=== PATIENT | male | born 1950 | race African-American/Black ===

== ENCOUNTER 2021-01-23 18:01 | Inpatient (IN) | payer MEDICARE, SELFPAY ==
--- NOTE | ~2021-01-23 | CT_ITS ---
EXAMINATION: CT brain wo con EXAM DATE: 01/27/2021 09:53 INDICATION: re eval possible chronic subdural hematomas EXAMINATION: CT brain wo con EXAM DATE: 01/27/2021 09:53 INDICATION: Reevaluate chronic subdural hematomas. TECHNIQUE: Spiral CT of the head was performed without contrast. Axial, coronal and sagittal images were reviewed. The dose-length product (DLP) for this examination was 605.33 mGy-cm. The exposure w as tailored according to patient size, and iterative reconstruction (ASIR) was used as additional dos e reduction technique. Comparison is made to prior examination from 01/24/2021. FINDINGS: Mildly prominent bifrontal extra-axial spaces, probable thin chronic subdural hematomas. Th ere is no acute intraparenchymal hemorrhage. No evidence of intraparenchymal brain mass lesion. No evidence of acute infarction. Please note that initial head CT has limited sensitivity for small or acute infarctions. There is a right-sided ventricular shunt overlying anterior aspect of the right v entricle. Probable aneurysm clip at the anterior communicating artery. There is mild periventricular and subcortical hypodensity, nonspecific but probably related to small vessel ischemic disease. Th ere is mild to moderate prominence of the sulci and ventricles related to cerebral atrophy. There i s intracranial carotid arteriosclerosis. There is no mass effect or midline shift. The orbits are u nremarkable. Soft tissue is unremarkable. The visualized sinuses and mastoid air cells are well aer ated. There is no significant interval change. IMPRESSION: 1. No acute findings or interval change. 2. Probably small chronic subdural hematomas. 3. Aneurysm clip, ventricular shunt. 4. Age-related findings. Reviewed, dictated and finalized at location A. IER PARKING LOT
--- NOTE | ~2021-01-23 | CT_ITS ---
EXAMINATION: CT brain wo con EXAM DATE: 01/24/2021 16:58 INDICATION: COVID 19. Altered mental status. TECHNIQUE: Spiral CT of the head was performed without contrast. Axial, coronal and sagittal images were reviewed. The dose-length product (DLP) for this examination was 681.00 mGy-cm. The exposure w as tailored according to patient size, and iterative reconstruction (ASIR) was used as additional dos e reduction technique. There is no prior study for comparison. FINDINGS: Mildly prominent bifrontal extra-axial spaces, possible chronic subdural hematomas. Mildly dense arteries and sinuses, likely from yesterday's contrast enhanced CT. There is no acute intrapare nchymal hemorrhage. No evidence of intraparenchymal brain mass lesion. No evidence of acute infarct ion. Please note that initial head CT has limited sensitivity for small or acute infarctions. There is a right-sided ventricular shunt overlying anterior aspect of the right ventricle. Probable aneury sm clip at the anterior communicating artery. There is mild periventricular and subcortical hypodens ity, nonspecific but probably related to small vessel ischemic disease. There is mild to moderate p rominence of the sulci and ventricles related to cerebral atrophy. There is intracranial carotid ar teriosclerosis. There is no mass effect or midline shift. The orbits are unremarkable. Soft tissue is unremarkable. The visualized sinuses and mastoid air cells are well aerated. IMPRESSION: 1. No acute intracranial findings. 2. Prominent right frontal extra-axial spaces, possible chronic subdural hematomas. 3. Aneurysm clip, ventricular shunt. No hydrocephalus. 4. Age-related findings. Reviewed, dictated and finalized at location A. SPLICER IMPRESSION: 1. No acute intracranial findings. 2. Prominent right frontal extra-axial spaces, possible chronic subdural hemat omas. 3. Aneurysm clip, ventricular shunt. No hydrocephalus. 4. Age-related findings.
--- NOTE | ~2021-01-23 | XR_ITS ---
EXAMINATION: XR chest 1V portable INDICATION: Weakness and confusion, COVID 19 TECHNIQUE: Portable AP chest at 1839 hours COMPARISON: None available FINDINGS: There are patchy bilateral airspace opacities, left greater than right. There is focal cons olidation versus pleural effusion at the left costophrenic angle. No pneumothorax is identified. The cardiomediastinal silhouette is normal for technique. Ventriculoperitoneal shunt catheter tubing proj ects over the right hemithorax. There is dextrocurvature of the lower thoracic spine. IMPRESSION: 1. Patchy bilateral airspace opacities, likely pneumonia. 2. More focal consolidation at the left costophrenic angle may reflect pleural effusion and/or and/or pneumonia. Reviewed, dictated and finalized at location A. NG CHANGER
--- NOTE | ~2021-01-23 | CT_ITS ---
EXAMINATION: CTA chest PE protocol DATE: 01/23/2021 20:16 INDICATION: Weakness and increasing confusion, shortness of breath TECHNIQUE: Computed tomography angiography (CTA) of the chest was performed with 100 mL Omnipaque-350 intravenous contrast timed to evaluate the pulmonary arteries. Coronal maximum intensity projection 3D-reconstructions were created by the technologist. The dose-length product (DLP) was 861.00 mGy-cm. Automated exposure control and iterative reconstruction technique were employed. COMPARISON: None. FINDINGS: The pulmonary arteries are well-opacified. No pulmonary embolism is identified. There are w idespread groundglass opacities with a peripheral and mid and lower lung zone predominance. No pleura l effusion or pneumothorax is identified. The heart size is normal. Ventriculoperitoneal shunt cathet er tubing courses over the right anterior chest wall. There are no pathologically enlarged thoracic l ymph nodes. Calcified pulmonary nodules and calcified right hilar and mediastinal lymph nodes are con sistent with old granulomatous disease. Cysts of the kidneys measure up to 6.5 cm on the right. There is mild thoracic spondylosis. IMPRESSION: 1. No pulmonary embolism. 2. Widespread groundglass opacities, consistent with COVID 19 pneumonia. Reviewed, dictated and finalized at location A. E ENGINEER
--- NOTE | ~2021-01-23 | XR_ITS ---
EXAMINATION: XR chest 1V portable EXAM DATE: 01/26/2021 05:35 INDICATION: COVID pneumonia. TECHNIQUE: Portable AP frontal chest x-ray was obtained. Comparison is made to prior examination from 01/23/2021. FINDINGS: Moderate quantity of diffuse ill-defined airspace disease, appearance is consistent with CO VID pneumonia. No pneumothorax or pleural effusion. The cardiac silhouette is enlarged. There is no p neumothorax suspected. Right midlung zone granuloma. Thoracic portion of ventriculoperitoneal shunt a ppears intact. Probably no significant interval change accounting for differences in technique. IMPRESSION: 1. Moderate quantity of ill-defined airspace disease involving all lobes. Reviewed, dictated and finalized at location A. CLEANER
[2021-01-23 18:10] VITALS: BP 125/88; PULSE 105; RESP 20; TEMP 36.7; O2SAT 95
--- NOTE | 2021-01-23 18:14 | ECG_ITS ---
Measurements Intervals [place] Rate: 95 P: 47 TX: 141 QRS: -22 QRSD: 86 T: -8 QT: 361 QTc: 455 Interpretive Statements SINUS RHYTHM BORDERLINE R WAVE PROGRESSION, ANTERIOR LEADS BORDERLINE T WAVE ABNORMALITY- ANT/INF LEADS BORDERLINE ECG Electronically Signed On 01-23-2021 19:58:31 ORDER CHECKER by Horacio Martin D.O.
--- NOTE | 2021-01-23 18:32 | ED.GENADULT ---
HPI - General Adult General Chief complaint: Weakness Stated complaint: covid, weakness Time Seen by Provider: 01/23/21 18:20 Source: patient and EMS Mode of arrival: EMS Limitations: no limitations History of Present Illness HPI narrative: Patient is a 70-year-old male who presents from assisted living for evaluation of shortness of breath with URI symptoms having been positive for pneumonia and Covid patient Covid 2 weeks ago has still been having dyspnea and fighting pneumonia this week patient on arrival is in no distress but is chronically ill-appearing patient presents on oxygen which EMS applied after being found to be hypoxic and the higher 80s. Patient denies any pain upon arrival. Patient has generalized fatigue Related Data Allergies Allergy/AdvReac Type Severity Reaction Status Date / Time No Known Allergies Allergy Unverified 04/22/19 13:32 Review of Systems Review of Systems: All systems reviewed & are unremarkable except as noted in HPI and below PMFSH Past Medical History Medical History (Updated 01/23/21 @ 21:05 by Parish Holly PA-C) CVA (cerebral vascular accident) Hyperlipidemia Hypertension Seizure disorder Social History Social History (Updated 01/23/21 @ 18:36 by Parish Holly PA-C) Smoking status: Never smoker Exam Narrative: Exam Narrative: GENERAL: Chronically ill-appearing, obese, and in no acute distress. HEAD: Normocephalic, atraumatic. EYES: PERRLA and EOMI. ENT: Nares clear, no rhinorrhea or epistaxis. Mucous membranes moist. CHEST: Diminished on auscultation. No respiratory distress. Coarse breath sounds in the lower lung mcmahan HEART: Regular rate and rhythm. No murmur heard. Normal peripheral pulses. ABDOMEN: Soft, nontender, nondistended EXTREMITIES: Normal range of motion. No edema. SKIN: Warm, dry, no rash. NEURO: No focal deficits. Alert and oriented. Cranial nerves II through XII grossly intact PSYCH: Normal mood and affect. Course Course Emergency Course: Patient evaluated in the emergency department likely experiencing hypoxemia secondary to his Covid patient also dehydrated patient will be admitted for continued evaluation patient resting comfortably in the room at this time no distress had improvement with oxygen requiring 2 L Consultations Consultation #1: spoke with hospitalist dr johnson who has accepted the patient Date: 01/23/21 Time: 21:20 Vital Signs Vital signs: Vital Signs Temperature 98.0 F 01/23/21 18:10 Pulse Rate 105 H 01/23/21 18:10 Respiratory Rate 20 01/23/21 18:10 Blood Pressure 125/88 01/23/21 18:10 Pulse Oximetry 95 01/23/21 18:10 Temperature 98.0 F 01/23/21 18:10 Pulse Rate 87 01/23/21 21:06 Respiratory Rate 27 H 01/23/21 21:06 Blood Pressure 124/108 H 01/23/21 21:06 Pulse Oximetry 94 01/23/21 21:06 Medical Decision Making MDM Narrative Medical decision making narrative: Patient with hypoxemia secondary to Covid pneumonia was given fluids and steroids in the emergency department be brought into the hospital for his oxygen requirements patient aware of this and agreeing to come into the hospital will be admitted to the hospitalist service Vital Signs Vital Signs: Vital Signs Temperature 98.0 F 01/23/21 18:10 Pulse Rate 105 H 01/23/21 18:10 Respiratory Rate 20 01/23/21 18:10 Blood Pressure 125/88 01/23/21 18:10 Pulse Oximetry 95 01/23/21 18:10 Temperature 98.0 F 01/23/21 18:10 Pulse Rate 87 01/23/21 21:06 Respiratory Rate 27 H 01/23/21 21:06 Blood Pressure 124/108 H 01/23/21 21:06 Pulse Oximetry 94 01/23/21 21:06 Lab Data Result diagrams: 01/23/21 20:07 01/23/21 19:17 Labs: Lab Results 01/23/21 01/23/21 01/23/21 Range/Units 18:46 18:58 19:17 WBC (4.5-10.0) K/mm3 RBC (4.6-6.20) M/mm3 Hgb (14.0-18.0) g/dL Hct (42.0-52.0) % MCV (80-100) fl MCH (26-34) pg MCHC (32-36) g/dl RDW
[2021-01-23 18:50] LABS: Alveolar/Arterial O2 Gradient 104.1 mmHg; Base Excess ABG 3.7 mEq/l (+/-2.0); Carboxyhemoglobin 1.5 % THb (0-2.0); Fractional Inspired Oxygen 30 %; HCO3 ABG 26.7 mEq/l (22.0-26.0); Methemoglobin ABG 0.2 %THb (0-1.5); Oxygen Content ABG 20.2 %vol (16.0-22.0); Oxyhemoglobin 91.6 % THb (90.0-100.0); PCO2 ABG 35.7 mmHg (35.0-45.0); PO2 ABG 67.9 mmHg (80.0-100.0); PO2 FiO2 Ratio Arterial Blood 2.26 %; Reduced Hemoglobin 6.7 %THb (0-5.0); Total Hemoglobin 15.7 g/dL (12.0-18.0); pH ABG 7.492 (7.350-7.450)
[2021-01-23 18:51] LABS: Device NASAL CANNULA; Liters per Minute 2.5 LPM; Modified Allen's Test Pass; Site Drawn LEFT RADIAL
[2021-01-23] MEDS: SODIUM CHLORIDE 0.9% IV 500 ML 999 ML IV CONT (18:55)
--- NOTE | 2021-01-23 19:06 | PC.NURSE ---
Per Jahaira Brantley of [facility] - PT was tested and diagnosed Covid + on 01/14/2021
[2021-01-23 19:21] LABS: Add Urine Microscopic? YES; Appearance Urine Clear (Clear); Bilirubin Urine Negative (Negative); Blood Urine Negative (Negative); Color Urine Yellow (Yellow); Glucose Urine UA Negative (Negative); Ketones Urine Trace mg/dL (Negative); Leukocyte Esterase Ur Negative LEU/UL (Negative); Mucus Urine Rare /lpf; Nitrate Urine Negative (Negative); Protein Urine 1+ mg/dL (Negative); RBC Urine 0-2 /hpf (0-2); Specific Grav Ur 1.024 (1.001-1.035); Squamous Epithelial Cell Urine Rare /hpf (Few); Urobilinogen Urine Negative mg/dL (<2.0); WBC Urine 0-3 /hpf
[2021-01-23 19:38] LABS: Alanine Aminotransferase 31 U/L (4-50); Albumin Level 3.5 g/dL (3.5-5.1); Alkaline Phosphatase 66 U/L (38-126); Anion Gap 5 mmol/L (8-16); Aspartate Amino Transferase 30 U/L (17-59); Bilirubin,Total 0.7 mg/dL (0.2-1.3); Blood Urea Nitrogen 29 mg/dL (9-20); Calcium 8.7 mg/dL (8.4-10.2); Carbon Dioxide 30 mmol/L (22-30); Chloride 109 mmol/L (98-107); Estimated CRCL calculation 70 ml/min; Estimated Glomerular Filt Rate > 60; Glucose 110 mg/dL (75-110); Sodium 144 mmol/L (137-145)
[2021-01-23 19:40] LABS: INR 1.1; Prothrombin Time 14.8 Seconds (11.1-14.7)
[2021-01-23 19:41] LABS: Partial Thromboplastin Time 29.7 SECONDS (22.3-36.8)
--- NOTE | 2021-01-23 20:11 | PC.NURSE ---
Patient to CT at this time+
[2021-01-23 20:22] LABS: Basophils Percent Auto 0.1 % (0.2-1.2); Eosinophils Absolute Auto 0.1 K/mm3 (0-0.3); Eosinophils Percent Auto 1.3 % (0-4.4); Hematocrit 47.2 % (42.0-52.0); Hemoglobin 15.4 g/dL (14.0-18.0); Immature Granulocyte Absolute 0.07 K/mm3 (0.00-0.031); Immature Granulocyte Percent A 0.7 % (0-0.5); Lymphocytes Absolute Auto 1.47 K/mm3 (0.9-3.2); Lymphocytes Percent Auto 13.8 % (18.3-44.2); Mean Corpuscular HGB Conc 32.6 g/dl (32-36); Mean Corpuscular Hemoglobin 30.8 pg (26-34); Mean Corpuscular Volume 94.4 fl (80-100); Mean Platelet Volume 9.7 fl (7.4-10.4); Monocytes Absolute Auto 0.9 K/mm3 (0.1-0.6); Monocytes Percent Auto 8.8 % (2.6-8.5); Neutrophils Absolute Auto 8.1 K/mm3 (1.3-6.7); Neutrophils Percent Auto 75.3 % (45.5-73.1); Platelet Count Result 237 k/mm3 (150-375); Red Cell Distribution Width 14.6 % (11.5-14.5); White Blood Count 10.7 K/mm3 (4.5-10.0)
[2021-01-23 20:33] LABS: Lactic Acid Reflex 0.9 mmol/L (0.7-2.1)
[2021-01-23 21:06] VITALS: BP 124/108; PULSE 87; RESP 27; O2SAT 94
[2021-01-23] MEDS: DEXAMETHASONE SOD PHOS INJ 4 MG/ML VIAL 6 MG IV PUSH (21:06)
--- NOTE | 2021-01-23 22:22 | PM.IMHP ---
H&P: HPI History of Present Illness Date/Time: 01/23/21 22:22 Chief Complaint: Shortness of breath Narrative: Ignacia Connelly is a 70 year old male who resides at assisted living. For upper respiratory infection symptoms. The patient tested positive for COVID-19 2 weeks ago. He is still having dyspnea and fatigue. The patient was falling asleep while I was asking him questions. He is very hard of hearing and I was having difficulty interviewing the patient. The patient has had a history of tracheostomy when he had an aneurysm rupture in the past. The patient is chronically ill-appearing. EMS put the patient on 2 L per nasal cannula. The patient was found to be hypoxic and saturating in the 80s. Chest x-ray was read as patchy bilateral airspace opacities likely pneumonia. More focal consolidation at the left costophrenic angle may reflect pleural effusion and/or pneumonia. Review of Systems Review of Systems: All systems reviewed & are unremarkable except as noted in HPI and below Constitutional: Constitutional: Reports as per HPI and Reports no additional constitutional complaints Eyes: Eyes: Reports as per HPI and Reports no additional eye complaints ENT: Reports system reviewed and no additional complaints, except as documented and Reports Normal hearing present Cardiovascular: Cardiovascular: Reports no additional cardiovascular complaints Respiratory: Respiratory: Reports no additional respiratory complaints and Reports no additional respiratory complaints Gastrointestinal: Gastrointestinal: Reports as per HPI and Reports no additional gastrointestinal complaints Musculoskeletal: Musculoskeletal: Reports no additional musculoskeletal complaints Integumentary/Breasts: Skin/Breast: Reports system reviewed and no additional complaints, except as docu and Reports as per HPI Neurologic: Reports system reviewed and no additional complaints, except as documented, Reports as per HPI and Reports Normal hearing present Psychiatric: Psychiatric: Reports no additional psychiatric complaints and Reports as per HPI Endocrine: Endocrine: Reports no additional endocrine complaints Hematologic/Lymphatic: Hematologic/Lymphatic: Reports no additional hematologic/lymphatic complaints Allergic/Immunologic: Allergic/Immunologic: Reports no additional allergic/immunologic complaints [facility] Past Medical History Medical History (Updated 01/23/21 @ 22:47 by Alina Tello NP) CVA (cerebral vascular accident) Hyperlipidemia Hypertension Seizure disorder Surgical History Surgical History (Updated 01/23/21 @ 22:29 by Alina Tello NP) History of tracheostomy S/P aneurysm repair Family History Family History (Updated 01/23/21 @ 22:30 by Alina Tello NP) Unknown Unknown family medical history Social History Social History (Updated 01/23/21 @ 18:36 by Parish Holly PA-C) Smoking status: Never smoker Meds Home Medications and Allergies Allergies Allergy/AdvReac Type Severity Reaction Status Date / Time No Known Allergies Allergy Unverified 04/22/19 13:32 Vital Signs Vital Signs - 24 hr 01/23/21 18:10 01/23/21 21:06 Temperature 36.7 C Pulse Rate 105 H 87 Respiratory Rate 20 27 H Blood Pressure 125/88 124/108 H Pulse Oximetry 95 94 Exam Const: General: no acute distress, well developed and awake Nutritional Appearance: average body habitus and overweight Orientation/consciousness: oriented to person, oriented to place and lethargic Limitations: other limitations (Patient is very hard of hearing and is lethargic) HENMT: Head: normal to inspection, No palpable skull fracture present, normocephalic and atraumatic Ears: hearing grossly normal bilaterally and external ears normal Eyes: General: appearance normal, both eyes and all related structures Alignment and Position: alignment normal Periorbital: periorbital findings normal Eyelids: eyelids normal Conjunctivae: conjunctivae
[2021-01-23 22:30] VITALS: BP 137/87; PULSE 87; RESP 16; O2SAT 94
[2021-01-23 23:31] VITALS: BMI 32.8
--- NOTE | 2021-01-23 23:35 | ADMGEN ---
This patient, Ignacia Connelly, was admitted to [facility] Room 325-01. Patient/family oriented to hospital policies and general routines including ID bracelet, bed and alarms, visiting hours, pain management, procedures, bathroom and other care routines, personal items, smoking policy, room service/diet, and visiting hours. Information on how to activate the Rapid Response Team has been discussed. Patient/Family are encouraged to report perceived risks to care and to ask questions if they do not understand what they are told or what they should do.
[2021-01-23 23:37] VITALS: PULSE 87; RESP 16; O2SAT 94
[2021-01-24] VITALS (14 sets, daily range): BP systolic 114–126; BP diastolic 68–87; PULSE 66–107; RESP 16–22; TEMP 36.2–36.6; O2SAT 87–95; BMI 32.8
[2021-01-24] MEDS: LACTATED RINGERS 1,000 ML 50 ML IV CONT
[2021-01-24 06:57] LABS: Basophils Percent Auto 0.2 % (0.2-1.2); Hematocrit 46.5 % (42.0-52.0); Hemoglobin 14.9 g/dL (14.0-18.0); Immature Granulocyte Absolute 0.04 K/mm3 (0.00-0.031); Immature Granulocyte Percent A 0.7 % (0-0.5); Lymphocytes Absolute Auto 0.53 K/mm3 (0.9-3.2); Lymphocytes Percent Auto 8.7 % (18.3-44.2); Mean Corpuscular Hemoglobin 30.5 pg (26-34); Mean Corpuscular Volume 95.3 fl (80-100); Monocytes Absolute Auto 0.2 K/mm3 (0.1-0.6); Monocytes Percent Auto 3.1 % (2.6-8.5); Neutrophils Absolute Auto 5.3 K/mm3 (1.3-6.7); Neutrophils Percent Auto 87.3 % (45.5-73.1); Platelet Count Result 231 k/mm3 (150-375); Red Blood Count 4.88 M/mm3 (4.6-6.20); Red Cell Distribution Width 14.6 % (11.5-14.5); White Blood Count 6.1 K/mm3 (4.5-10.0)
[2021-01-24 07:12] LABS: Anion Gap 4 mmol/L (8-16); Blood Urea Nitrogen 29 mg/dL (9-20); Calcium 8.8 mg/dL (8.4-10.2); Carbon Dioxide 29 mmol/L (22-30); Chloride 111 mmol/L (98-107); Estimated CRCL calculation 67 ml/min; Estimated Glomerular Filt Rate > 60; Glucose 132 mg/dL (75-110); Potassium 4.4 mmol/L (3.4-5.0); Sodium 144 mmol/L (137-145)
[2021-01-24] MEDS: DEXAMETHASONE SOD PHOS INJ 4 MG/ML VIAL 6 MG IV PUSH (08:33)
[2021-01-24] MEDS: FAMOTIDINE 20 MG/2 ML VIAL IV PUSH ×2 (08:33→21:11)
[2021-01-24] MEDS: ENOXAPARIN 40 MG/0.4 ML SYRINGE SUB-Q (08:33)
--- NOTE | 2021-01-24 12:40 | PCNSR ---
On 01/24/21, the student,Elsy Galvan, provided care and completed [facility] documentation on this patient. I have reviewed the student's documentation and agree with the findings.
[2021-01-24] MEDS: DOCUSATE SODIUM 100 MG CAPSULE PO ×2 (13:33→21:15)
[2021-01-24] MEDS: carvediloL 25 MG TABLET PO ×2 (13:33→21:13)
[2021-01-24] MEDS: ESCITALOPRAM OXALATE 10 MG TABLET PO (13:33)
[2021-01-24] MEDS: FUROSEMIDE 20 MG TABLET PO (13:33)
[2021-01-24] MEDS: ASPIRIN 81 MG CHEWABLE TABLET PO (13:33)
[2021-01-24] MEDS: hydrALAZINE HCL 50 MG TABLET PO ×2 (13:33→21:13)
[2021-01-24] MEDS: TAMSULOSIN HCL 0.4 MG CAPSULE PO (13:33)
[2021-01-24] MEDS: LORazepam INJ (*CRX) 2 MG/ML VIAL 0.5 MG IV PUSH (13:33)
[2021-01-24] MEDS: levETIRAcetam 500 MG TABLET 1000 MG PO ×2 (13:33→21:12)
--- NOTE | 2021-01-24 14:31 | PM.IMPN ---
Progress Note: A&P Assessment and Plan (1) COVID-19: Code(s): U07.1 - COVID-19 Status: Acute Assessment and Plan: Patient continues to have oxygen requirements and respiratory symptoms and is now hospitalized for such -imaging shows likely COVID-19, no PE - Patient was tested positive for COVID 2 weeks ago -continue Decadron -he is out of the window for Remdesivir -Continue with nebulizer inhaler and incentive spirometer -wean oxygen as tolerated -will check influenza -hold off on antibiotics at this time as I do not suspect bacterial infection but will monitor closely (2) Pneumonia: Code(s): J18.9 - Pneumonia, unspecified organism Status: Acute Assessment and Plan: Likely due to COVID-19 -as above (3) Dehydration: Code(s): E86.0 - Dehydration Status: Acute Assessment and Plan: Resolved -will stop fluids -he will sustain on oral feedings (4) Hyperlipidemia: Code(s): E78.5 - Hyperlipidemia, unspecified Status: Chronic Assessment and Plan: Chronic (5) Hypertension: Code(s): I10 - Essential (primary) hypertension Status: Chronic Assessment and Plan: Last blood pressure 126/87 -continue carvedilol and hydralazine (6) Acute respiratory failure with hypoxia: Code(s): J96.01 - Acute respiratory failure with hypoxia Status: Acute Assessment and Plan: Due to COVID-19 -wean oxygen as tolerated (7) Acute metabolic encephalopathy: Code(s): G93.41 - Metabolic encephalopathy Status: Acute Assessment and Plan: Likely due to combination of COVID and worsened with steroids -although no neurological deficits on exam, will check CT of the brain since COVID-19 is a hypercoagulable state -hopefully this will improve over time Time Spent With Patient Time with patient: 25 - 35 minutes Subjective Date/time seen: 01/24/21 14:31 Interval history: Pt is a 70-year-old male here for COVID-19. Patient was seen today and seems anxious. He states he has to get out here but when asked why, he cannot tell me why. He says he is not any pain. He has slight shortness of breath. No cough. He says he has been eating and drinking okay. Pt denies nausea, vomiting, fevers, chills, constipation, diarrhea, chest pain, or abdominal pain. Review of Systems Review of Systems: All systems reviewed & are unremarkable except as noted in HPI and below Exam Narrative: Exam Narrative: General: Overweight patient resting comfortably in bed in no acute distress HEENT: normocephalic Neck: supple Neuro: Alert and oriented to himself, place but not situation or year. Follows commands. Cranial nerves 2-12 intact. Equal strength the upper lower extremities 5/5 CV:RRR, quite of breath due to body habitus Resp: Slightly decreased breath sounds with O2 applied. No conversational dyspnea Abd: Soft, non distended. No pain to palpation. Positive bowel sounds Extremities: No swelling, erythema, or pain to palpation. Objective Data Vital Signs Vital Signs: Vital Signs - 24 hr 01/23/21 18:10 01/23/21 21:06 01/23/21 22:30 Temperature 98.0 F Pulse Rate 105 H 87 87 Respiratory Rate 20 27 H 16 Blood Pressure 125/88 124/108 H 137/87 Pulse Oximetry 95 94 94 01/23/21 23:37 01/24/21 02:21 01/24/21 04:00 Temperature 97.5 F L Pulse Rate 87 93 Respiratory Rate 16 22 H Blood Pressure 117/76 Pulse Oximetry 94 93 93 01/24/21 08:00 01/24/21 08:09 01/24/21 12:00 Temperature 97.9 F 97.2 F L Pulse Rate 92 95 Respiratory Rate 16 16 Blood Pressure 126/87 126/87 Pulse Oximetry 95 93 94 01/24/21 13:33 01/24/21 13:43 01/24/21 13:45 Temperature Pulse Rate 94 Respiratory Rate Blood Pressure Pulse Oximetry 89 L 92 Intake/Output Intake/Output: Intake & Output 01/21/21 01/22/21 01/23/21 01/24/21 23:59 23:59 23:59 23:59 Intake Total 500 3
[2021-01-24 15:26] LABS: Influenza Control Positive
[2021-01-25] VITALS (8 sets, daily range): BP systolic 103–113; BP diastolic 65–72; PULSE 62–81; RESP 18–20; TEMP 36.2–36.6; O2SAT 90–95
[2021-01-25] MEDS: hydrALAZINE HCL 50 MG TABLET PO ×3 (05:18→20:53)
[2021-01-25 06:21] LABS: Basophils Percent Auto 0.2 % (0.2-1.2); Eosinophils Percent Auto 0.1 % (0-4.4); Hemoglobin 13.4 g/dL (14.0-18.0); Immature Granulocyte Absolute 0.09 K/mm3 (0.00-0.031); Immature Granulocyte Percent A 0.6 % (0-0.5); Lymphocytes Absolute Auto 1.31 K/mm3 (0.9-3.2); Lymphocytes Percent Auto 9.2 % (18.3-44.2); Mean Corpuscular HGB Conc 32.7 g/dl (32-36); Mean Corpuscular Hemoglobin 30.6 pg (26-34); Mean Corpuscular Volume 93.6 fl (80-100); Mean Platelet Volume 10.2 fl (7.4-10.4); Monocytes Absolute Auto 1.2 K/mm3 (0.1-0.6); Neutrophils Absolute Auto 11.7 K/mm3 (1.3-6.7); Neutrophils Percent Auto 81.9 % (45.5-73.1); Platelet Count Result 250 k/mm3 (150-375); Red Blood Count 4.38 M/mm3 (4.6-6.20); Red Cell Distribution Width 14.4 % (11.5-14.5); White Blood Count 14.3 K/mm3 (4.5-10.0)
[2021-01-25 06:51] LABS: Alanine Aminotransferase 37 U/L (4-50); Albumin Level 3.1 g/dL (3.5-5.1); Alkaline Phosphatase 52 U/L (38-126); Anion Gap 1 mmol/L (8-16); Aspartate Amino Transferase 27 U/L (17-59); Bilirubin,Total 0.3 mg/dL (0.2-1.3); Blood Urea Nitrogen 36 mg/dL (9-20); CRP 4.4 mg/dL (<1.0); Calcium 9.1 mg/dL (8.4-10.2); Carbon Dioxide 31 mmol/L (22-30); Chloride 111 mmol/L (98-107); Estimated CRCL calculation 62 ml/min; Estimated Glomerular Filt Rate > 60; Glucose 122 mg/dL (75-110); Lactate Dehydrogenase 612 U/L (313-618); Magnesium 2.3 mg/dL (1.6-2.3); Potassium 4.3 mmol/L (3.4-5.0); Sodium 143 mmol/L (137-145)
[2021-01-25] MEDS: FAMOTIDINE 20 MG/2 ML VIAL IV PUSH ×2 (08:57→20:52)
[2021-01-25] MEDS: ENOXAPARIN 40 MG/0.4 ML SYRINGE SUB-Q (08:57)
[2021-01-25] MEDS: DOCUSATE SODIUM 100 MG CAPSULE PO ×2 (08:57→20:52)
[2021-01-25] MEDS: levETIRAcetam 500 MG TABLET 1000 MG PO ×2 (08:57→20:52)
[2021-01-25] MEDS: ASPIRIN 81 MG CHEWABLE TABLET PO (08:57)
[2021-01-25] MEDS: DEXAMETHASONE SOD PHOS INJ 4 MG/ML VIAL 6 MG IV PUSH (08:57)
[2021-01-25] MEDS: TAMSULOSIN HCL 0.4 MG CAPSULE PO (08:57)
[2021-01-25] MEDS: FUROSEMIDE 20 MG TABLET PO (08:58)
[2021-01-25] MEDS: carvediloL 25 MG TABLET PO ×2 (08:58→20:51)
[2021-01-25] MEDS: ESCITALOPRAM OXALATE 10 MG TABLET PO (08:58)
--- NOTE | 2021-01-25 15:54 | PM.IMPN ---
Progress Note: A&P Assessment and Plan (1) COVID-19: Code(s): U07.1 - COVID-19 Status: Acute Assessment and Plan: Patient continues to have oxygen requirements and respiratory symptoms and is now hospitalized for such -imaging shows likely COVID-19, no PE - Patient was tested positive for COVID 2 weeks ago and was treated at [facility] -continue Decadron -he is out of the window for Remdesivir -Continue with nebulizer inhaler and incentive spirometer -wean oxygen as tolerated -influenza negative -hold off on antibiotics at this time as I do not suspect bacterial infection but will monitor closely (2) Pneumonia: Code(s): J18.9 - Pneumonia, unspecified organism Status: Acute Assessment and Plan: Likely due to COVID-19 -as above (3) Dehydration: Code(s): E86.0 - Dehydration Status: Acute Assessment and Plan: Resolved -hopefully he will sustain on oral feedings (4) Hyperlipidemia: Code(s): E78.5 - Hyperlipidemia, unspecified Status: Chronic Assessment and Plan: Chronic (5) Hypertension: Code(s): I10 - Essential (primary) hypertension Status: Chronic Assessment and Plan: Last blood pressure 113/72 -continue carvedilol and hydralazine (6) Acute respiratory failure with hypoxia: Code(s): J96.01 - Acute respiratory failure with hypoxia Status: Acute Assessment and Plan: Due to COVID-19 -wean oxygen as tolerated (7) Acute metabolic encephalopathy: Code(s): G93.41 - Metabolic encephalopathy Status: Acute Assessment and Plan: Likely due to combination of COVID and worsened with steroids -Improved 01/25/21 and spoke to family who states he is close to baseline and he has problems with short term memory since his brain aneurysm -no neurological deficits -CT shows nothing acute but shows possible CHRONIC subdural hematoma -findings may be due to hx of shunt and aneurysm that is clipped (2013) -Will obtain records -monitor neuro status closely, do not suspect acute pathology -continue lovenox since COVID is a hypercoagulable state but monitor mental status closely Subjective Date/time seen: 01/25/21 15:54 Interval history: Pt is a 70-year-old male here for COVID-19. Pt was seen today and states he is feeling better. He denies SOB, CP, nausea, vomiting, fevers, chills, leg swelling, diarrhea or constipation. We spoke about his aneurysm work up which was in 2013 at [facility]. 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 Pt states he is able to taste and smell. Exam Narrative: Exam Narrative: General: Overweight patient resting comfortably in bed in no acute distress HEENT: normocephalic Neck: supple Neuro: Alert and oriented to himself, place, situation but not year. Follows commands. Cranial nerves 2-12 intact. Equal strength the upper lower extremities 5/5. able to do finger to nose and rapid alternating movements CV:RRR, quite of breath due to body habitus Resp: Slightly decreased breath sounds with O2 applied. No conversational dyspnea Abd: Soft, non distended. No pain to palpation. Positive bowel sounds Extremities: No swelling, erythema, or pain to palpation. Objective Data Vital Signs Vital Signs: Vital Signs - 24 hr 01/24/21 16:00 01/24/21 20:30 01/24/21 20:33 Temperature 97.9 F Pulse Rate 107 H 68 Respiratory Rate 20 Blood Pressure 115/79 Pulse Oximetry 93 94 87 L 01/24/21 20:56 01/24/21 21:13 01/24/21 22:00 Temperature 97.8 F Pulse Rate 66 98 Respiratory Rate 20 Blood Pressure 114/68 Pulse Oximetry 91 91 01/25/21 06:00 01/25/21 08:00 01/25/21 08:58 Temperature 97.8 F Pulse Rate 74 74 Respiratory Rate 20 Blood Pressure 103/72 Pulse Oximetry 93 93 01/25/21 14:00 Temperature 97.2
[2021-01-25] MEDS: ACETAMINOPHEN 325 MG TABLET PO (20:57)
[2021-01-26] VITALS (9 sets, daily range): BP systolic 92–123; BP diastolic 64–75; PULSE 68–86; RESP 18; TEMP 35.9–36.3; O2SAT 90–94
[2021-01-26] MEDS: hydrALAZINE HCL 50 MG TABLET PO (05:44)
[2021-01-26] MEDS: ACETAMINOPHEN 325 MG TABLET PO (05:47)
[2021-01-26 06:53] LABS: Hematocrit 42.7 % (42.0-52.0); Hemoglobin 13.8 g/dL (14.0-18.0); Mean Corpuscular HGB Conc 32.3 g/dl (32-36); Mean Platelet Volume 9.9 fl (7.4-10.4); Platelet Count Result 249 k/mm3 (150-375); Red Blood Count 4.45 M/mm3 (4.6-6.20); Red Cell Distribution Width 14.6 % (11.5-14.5); White Blood Count 11.4 K/mm3 (4.5-10.0)
[2021-01-26 07:10] LABS: Anion Gap 3 mmol/L (8-16); Blood Urea Nitrogen 35 mg/dL (9-20); Calcium 9.2 mg/dL (8.4-10.2); Carbon Dioxide 31 mmol/L (22-30); Chloride 109 mmol/L (98-107); Estimated CRCL calculation 58 ml/min; Estimated Glomerular Filt Rate > 60; Glucose 106 mg/dL (75-110); Potassium 4.1 mmol/L (3.4-5.0); Sodium 143 mmol/L (137-145)
[2021-01-26] MEDS: LORazepam INJ (*CRX) 2 MG/ML VIAL 0.5 MG IV PUSH (07:12)
[2021-01-26] MEDS: DEXAMETHASONE SOD PHOS INJ 4 MG/ML VIAL 6 MG IV PUSH (09:27)
[2021-01-26] MEDS: LACTATED RINGERS 500 ML 100 ML IV CONT (09:27)
[2021-01-26] MEDS: ESCITALOPRAM OXALATE 10 MG TABLET PO (09:27)
[2021-01-26] MEDS: FAMOTIDINE 20 MG/2 ML VIAL IV PUSH ×2 (09:27→20:12)
[2021-01-26] MEDS: TAMSULOSIN HCL 0.4 MG CAPSULE PO (09:27)
[2021-01-26] MEDS: ASPIRIN 81 MG CHEWABLE TABLET PO (09:27)
[2021-01-26] MEDS: levETIRAcetam 500 MG TABLET 1000 MG PO ×2 (09:27→20:13)
[2021-01-26] MEDS: ENOXAPARIN 40 MG/0.4 ML SYRINGE SUB-Q (09:27)
[2021-01-26] MEDS: carvediloL 25 MG TABLET PO ×2 (09:30→20:14)
[2021-01-26] MEDS: DOCUSATE SODIUM 100 MG CAPSULE PO ×2 (09:30→20:14)
--- NOTE | 2021-01-26 12:55 | PM.IMPN ---
Progress Note: A&P Assessment and Plan (1) COVID-19: Code(s): U07.1 - COVID-19 Status: Acute Assessment and Plan: Patient was off oxygen this morning but I found him at 88% after walking from the chair to the bed -imaging shows likely COVID-19, no PE - Patient was tested positive for COVID 2 weeks ago and was treated at [facility] -continue Decadron -he is out of the window for Remdesivir -Continue with nebulizer inhaler and incentive spirometer -wean oxygen as tolerated -influenza negative -hold off on antibiotics at this time as I do not suspect bacterial infection but will monitor closely -will do home oxygen evaluation tomorrow (2) Pneumonia: Code(s): J18.9 - Pneumonia, unspecified organism Status: Acute Assessment and Plan: Likely due to COVID-19 -as above (3) Dehydration: Code(s): E86.0 - Dehydration Status: Acute Assessment and Plan: Patient appears a little more dehydrated today -500 cc of fluid will be given -he is eating most of his meals every day -Lasix held today (4) Hyperlipidemia: Code(s): E78.5 - Hyperlipidemia, unspecified Status: Chronic Assessment and Plan: Chronic (5) Hypertension: Code(s): I10 - Essential (primary) hypertension Status: Chronic Assessment and Plan: Last blood pressure 107/85 -was a little bit lower overnight -continue carvedilol but hold hydralazine (6) Acute respiratory failure with hypoxia: Code(s): J96.01 - Acute respiratory failure with hypoxia Status: Acute Assessment and Plan: Due to COVID-19 -wean oxygen as tolerated (7) Acute metabolic encephalopathy: Code(s): G93.41 - Metabolic encephalopathy Status: Acute Assessment and Plan: Likely due to combination of COVID and worsened with steroids -Improved 01/25/21 and spoke to family who states he is close to baseline and he has problems with short term memory since his brain aneurysm -no neurological deficits again today -CT shows nothing acute but shows possible CHRONIC subdural hematoma -findings may be due to hx of shunt and 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 Pt was seen today and was out of breath laying on his bed sideways when I walked in. When I asked if he felt short of breath, he said yes he had just gotten from the chair to the bed and felt winded. He says he felt stronger and did not feel weak as he transferred but got short of breath. He states he feels fine and has no numbness, tingling, focal weakness, worsening problems with speech, or change in vision. Exam Narrative: Exam Narrative: General: Overweight patient resting in bed with an elevated respiratory rate on no oxygen HEENT: normocephalic Neck: supple Neuro: Alert and oriented to himself, place, but not year (which has been ongoing). He 1st thought he was here for his aneurysm but after thinking about it, he knew he was here for COVID-19. Follows commands. Cranial nerves 2-12 intact. Equal strength the upper lower extremities 5/5. able to do finger to nose and rapid alternating movements CV:RRR, quite of breath due to body habitus Resp: Elevated respiratory rate and 88% on room air. 2 L of oxygen applied which brought him up to 91. Slightly decreased breath. Mild conversational dyspnea Abd: Soft, non distended. No pain to palpation. Positive bowel sounds Extremities: No swelling, erythema, or pain to palpation. Blood pressure 107/85 Objective Data Vital Signs Vital Signs: Vit
[2021-01-27 06:00] VITALS: BP 116/79; PULSE 68; RESP 18; TEMP 36.2; O2SAT 93
[2021-01-27 06:09] LABS: Hematocrit 41.6 % (42.0-52.0); Hemoglobin 13.3 g/dL (14.0-18.0); Mean Corpuscular Hemoglobin 30.6 pg (26-34); Mean Corpuscular Volume 95.6 fl (80-100); Mean Platelet Volume 9.9 fl (7.4-10.4); Platelet Count Result 233 k/mm3 (150-375); Red Blood Count 4.35 M/mm3 (4.6-6.20); Red Cell Distribution Width 14.3 % (11.5-14.5); White Blood Count 10.2 K/mm3 (4.5-10.0)
[2021-01-27 06:36] LABS: Anion Gap 2 mmol/L (8-16); Blood Urea Nitrogen 30 mg/dL (9-20); Calcium 8.9 mg/dL (8.4-10.2); Carbon Dioxide 31 mmol/L (22-30); Chloride 108 mmol/L (98-107); Estimated CRCL calculation 58 ml/min; Estimated Glomerular Filt Rate > 60; Glucose 99 mg/dL (75-110); Magnesium 2.1 mg/dL (1.6-2.3); Sodium 141 mmol/L (137-145)
[2021-01-27 07:24] LABS: Thyroid Stimulating Hormone Reflex 0.236 uIU/mL (0.465-4.68)
[2021-01-27 07:55] LABS: Free T4 Free Thyroxine Reflex 1.29 ng/dL (0.78-2.19)
[2021-01-27 08:45] LABS: Total Triiodothyronine (T3) 0.74 NG/ML (0.97-1.69)
[2021-01-27 09:20] VITALS: PULSE 65; O2SAT 93
[2021-01-27 09:22] VITALS: PULSE 75; O2SAT 87
[2021-01-27] MEDS: DOCUSATE SODIUM 100 MG CAPSULE PO (09:23)
[2021-01-27] MEDS: TAMSULOSIN HCL 0.4 MG CAPSULE PO (09:23)
[2021-01-27] MEDS: ESCITALOPRAM OXALATE 10 MG TABLET PO (09:23)
[2021-01-27] MEDS: ASPIRIN 81 MG CHEWABLE TABLET PO (09:23)
[2021-01-27] MEDS: DEXAMETHASONE SOD PHOS INJ 4 MG/ML VIAL 6 MG IV PUSH (09:23)
[2021-01-27] MEDS: ENOXAPARIN 40 MG/0.4 ML SYRINGE SUB-Q (09:23)
[2021-01-27] MEDS: levETIRAcetam 500 MG TABLET 1000 MG PO (09:23)
[2021-01-27 09:24] VITALS: PULSE 71; PULSE 74; O2SAT 91
[2021-01-27] MEDS: carvediloL 25 MG TABLET PO (09:24)
[2021-01-27] MEDS: FAMOTIDINE 20 MG/2 ML VIAL IV PUSH (09:25)
--- NOTE | 2021-01-27 09:41 | PCRCNOTE ---
HOME OXYGEN EVALUATION COMPLETE; PT. REQUIRES 1LPM OXYGEN WITH ACTIVITY. R.N. NOTIFIED OF THE RESULTS. HOME OXYGEN SET UP WITH [facility]; [facility] IS IN THE ROOM. PHONE NUMBER [phone].
--- NOTE | 2021-01-27 09:42 | HOMEO2EVAL ---
Home Oxygen Evaluation RC: Home Oxygen (O2) Evaluation Start: 01/27/21 08:00 Freq: ONCE Status: Active Protocol: RPE Activity Type Activity Date Activity User E-Sign Co-Sign Detail Recorded Client Recorded Date Recorded By Document 01/27/21 09:20 [facility] [email or web address] 01/27/21 09:40 [facility] Document 01/27/21 09:22 [email or web address] [email or web address] 01/27/21 09:40 [facility]U Document 01/27/21 09:24 [email or web address] [email or web address] 01/27/21 09:40 [facility] 01/27/21 01/27/21 01/27/21 09:20 09:22 09:24 Home O2 Evaluation Test Phase Resting Exercise Exercise Oxygen Delivery Room Air Room Air Nasal Cannula Oxygen Flow Rate (L/min) 1 Pulse Oximetry (90-100 %) 93 87 L 91 Pulse Rate (60-100 beats/min) 65 75 74 Ambulation Distance (feet) 50 Home Oxygen Evaluation Comments placed on 1lpm O2 Treatment Charges O2 Evaluation - Inpatient
[2021-01-27] MEDS: ACETAMINOPHEN 325 MG TABLET PO (11:36)
--- NOTE | 2021-01-27 13:09 | PCOTNOTE ---
Attempted to see patient this PM for skilled OT session. Patient alert/awake upon entry and lying in bed. Patient declines participation in therapy stating, No, I'm not doing anything. I'm worn out. Come back later and I'll try. Patient also reports of 6/10 pain in the Right leg at this time, STRATEGIC PLANNING MANAGER notified to tell RN. Will attempt to see patient for a second time this PM if possible.
[2021-01-27 14:00] VITALS: BP 121/78; PULSE 72; RESP 18; TEMP 36.8; O2SAT 93
--- NOTE | 2021-01-27 14:21 | PM.DS ---
DS: Admitting Diagnosis Admitting Diagnosis Admitting Diagnosis: COVID DS: Discharge Diagnosis Discharge Diagnosis (1) COVID-19: Code(s): U07.1 - COVID-19 Status: Acute Assessment and Plan: Patient does well off oxygen on room air but requires 1 L of oxygen with ambulation. He assures me that he can handle this at his assisted living and I also spoke to his brother this and about discharge plan -imaging shows likely COVID-19, no PE - Patient was tested positive for COVID 2 weeks ago and was treated at [facility] -influenza negative -no antibiotics needed at this time -will need follow-up with primary care physician and he was educated to come back to emergency room for any worsening symptoms (2) Pneumonia: Code(s): J18.9 - Pneumonia, unspecified organism Status: Acute Assessment and Plan: Likely due to COVID-19 -as above (3) Dehydration: Code(s): E86.0 - Dehydration Status: Acute Assessment and Plan: Patient appears more euvolemic today and is eating and drinking well (4) Hyperlipidemia: Code(s): E78.5 - Hyperlipidemia, unspecified Status: Chronic Assessment and Plan: Chronic (5) Hypertension: Code(s): I10 - Essential (primary) hypertension Status: Chronic Assessment and Plan: Last blood pressure 121/78 -resume home medications at discharge (6) Acute respiratory failure with hypoxia: Code(s): J96.01 - Acute respiratory failure with hypoxia Status: Acute Assessment and Plan: Patient requires 1 L with activity only. No oxygen needed at rest (7) Acute metabolic encephalopathy: Code(s): G93.41 - Metabolic encephalopathy Status: Acute Assessment and Plan: Likely due to combination of COVID and worsened with steroids -patient at baseline on discharge. 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 Vitals in the ER were temperature 98.0? F, pulse 105, respiratory rate 20, blood pressure 125/88, pulse ox 95 on 2 L. initial white blood cell count 10.7, hematocrit 42.2, hemoglobin 15.4, platelets 237. BMP relatively normal. UA showed no indication of infection. Lactic acid was normal. CTA of the chest showed no pulmonary emboli but widespread ground-glass opacities consistent with COVID-19. Patient was admitted to the hospitalist service and observed. He was stable throughout his stay but did require oxygen. He was started on steroids although this was of questionable benefit due to the length of time he had been infected with COVID-19. No secondary bacterial infection was suspected as the patient had no fevers and improved during his hospital stay. The day of discharge he did a home oxygen evaluation which recommended 1 L with activity and nothing at rest. The patient lives in assisted living and physical therapy stated he did okay with a walker and was able to go back. The patient assures me that he has a walker at home and that he would be okay with the oxygen. He was a little more confused during the beginning of his stay and a CT of the brain was done which showed no acute abnormality bu
--- NOTE | 2021-01-27 14:28 | PCRCNOTE ---
PT. BILLING ADDRESS ON THE FACESHEET IS NOT WHERE THE PT. RESIDES. UPDATED [facility] WITH NEW ADDRESS WHERE O2 NEEDED TO BE DELIVERED. [address], [place], [place] [address]. RN AND PROVIDER AWARE.
--- NOTE | 2021-01-27 15:59 | PCOTNOTE ---
Attempted to see patient for a second time to complete skilled OT session this date. Patient awake and lying in bed upon entry. Patient declined participation in therapy stating I'm worn out and tired, my brother is gonna be here soon too and I don't want to be worn out when he gets here. [employer]MA[employer] explained that completing ADLs could be completed in bed and may improve his mood, but patient again refused. OT session not completed this date. Will continue per Plan of Care.
--- NOTE | 2021-02-01 08:18 | PC.NURSE ---
Blood cx are negative.
== END 2021-01-27 17:15 | DRG 177 ==
LOC: ANHED 21:05 → ANH3MEDSUR 01-24 08:47
PROVIDERS: Emergency Medicine Emergency Medical Services; Admitting Provider Family Medicine; Emergency Provider Emergency Medicine; Visit Provider Physician Assistant
DX: U07.1 COVID-19 (principal); J12.82 Pneumonia due to coronavirus disease 2019; G93.41 Metabolic encephalopathy; J96.01 Acute respiratory failure with hypoxia; Z86.73 Personal history of transient ischemic attack (TIA), and cerebral infarction without residual deficits; E78.5 Hyperlipidemia, unspecified; I10 Essential (primary) hypertension; E86.0 Dehydration
CPT/HCPCS: 36415; 36600; 70450; 71045; 71275; 80048; 80053; 80076; 81001; 82375; 82728; 82805; 83050; 83605; 83615; 83735; 84439; 84443; 84480; 85025; 85027; 85610; 85730; 86140; 87040; 87804; 93005; 94618; 96361; 96374; 97110; 97161; 97165; 97530; 99285; A9270; J1100; J1650; J2060; J7040; J7120; Q9967

== ENCOUNTER 2021-02-11 02:01 | Inpatient (IN) | payer MEDICARE, SELFPAY ==
[2021-02-11] VITALS (24 sets, daily range): BP systolic 97–144; BP diastolic 58–103; PULSE 68–92; RESP 14–24; TEMP 35.7–36.6; O2SAT 74–97
--- NOTE | ~2021-02-11 | CT_ITS ---
EXAMINATION: CTA chest PE protocol DATE: 02/11/2021 07:47 CDT INDICATION: Chest pain and dyspnea TECHNIQUE: Computed tomographic angiography (CTA) of the chest was performed with 100 mL Omnipaque-35 0 intravenous contrast. The dose-length product was 878.52 mGy-cm. Maximum intensity projection 3D-re constructions of the aorta and other arteries were constructed by the technologist on a separate work station. Automated exposure control and iterative reconstruction technique were employed. COMPARISON: CT dated 01/23/2021. FINDINGS: Study is technically adequate without evidence for pulmonary embolism. Evaluation of periph eral pulmonary arteries limited by motion. Cardiomegaly. No significant pleural or pericardial effusi on. There are calcified mediastinal lymph nodes, consistent with chronic granulomatous disease. There is right upper lobe calcified granuloma. There is patchy groundglass opacification throughout both lungs, consistent with pneumonia. No thorac ic lymphadenopathy. No evidence for aortic aneurysm or dissection. There are bilateral renal cysts. T here is a subcentimeter hepatic cyst. Calcified splenic granulomas. Small hiatal hernia. Moderate tho racic spondylosis. IMPRESSION: 1. Multifocal groundglass opacification, consistent with pneumonia. 2: Cardiomegaly. Reviewed, dictated and finalized at location A.
--- NOTE | ~2021-02-11 | XR_ITS ---
XR chest 1V portable 02/11/2021 02:37 Indication: Chest pain Procedure: AP portable chest Comparison: 01/26/2021 Findings: Patchy bilateral airspace disease, consistent with pneumonia. Cardiomegaly. Right-sided cat heter overlying the chest, possibly ventriculoperitoneal shunt. Impression: 1: Patchy bilateral airspace disease, compatible with pneumonia. Reviewed, dictated and finalized at location A. Impression: 1: Patchy bilateral airspace disease, compatible with pneumonia.
--- NOTE | 2021-02-11 02:09 | ECG_ITS ---
SINUS RHYTHM DELAYED PRECORDIAL R/S TRANSITION BORDERLINE ST-T WAVE ABNORMALITY- ANT/INF LEADS BORDERLINE ECG Electronically Signed On 02-11-2021 12:16:02 CDT by Horacio VERAS
--- NOTE | 2021-02-11 02:10 | ED.GENADULT ---
HPI - General Adult General Chief complaint: Chest Pain Stated complaint: CP Source: RN notes reviewed History of Present Illness HPI narrative: Patient presents to emergency department from assisted living via EMS for chest pain. Patient states he has been having midsternal chest pain described as a pressure that started today states associated shortness of breath denies any radiation of the pain patient denies any previous cardiac history. Patient was recently diagnosed with Covid approximately month ago and has been intermittently on oxygen since that time he denies any fevers or chills abdominal pain nausea vomiting or any other symptoms patient was given aspirin 325 by EMS in route Related Data Home Medications Medication Instructions Recorded Confirmed Adults Multivitamin 1 tablet PO DAILY 01/24/21 01/24/21 Anoro Ellipta 1 inh INHALATION DAILY 01/24/21 01/24/21 acetaminophen 325 mg PO BID PRN 01/24/21 01/24/21 aspirin 81 mg PO DAILY 01/24/21 01/24/21 atorvastatin [Lipitor] 10 mg PO DAILY 01/24/21 01/24/21 baclofen 10 mg PO TID 01/24/21 01/24/21 carvedilol [Coreg] 25 mg PO BID 01/24/21 01/24/21 cholecalciferol (vitamin D3) 10 mcg PO DAILY 01/24/21 01/24/21 docusate sodium [Colace] 100 mg PO BID 01/24/21 01/24/21 escitalopram oxalate [Lexapro] 10 mg PO DAILY 01/24/21 01/24/21 furosemide [Lasix] 20 mg PO DAILY 01/24/21 01/24/21 hydralazine 50 mg PO TID 01/24/21 01/24/21 levetiracetam [Keppra] 1,000 mg PO BID 01/24/21 01/24/21 mupirocin 1 applic TOPICAL TID 01/24/21 01/24/21 olmesartan [Benicar] 40 mg PO DAILY 01/24/21 01/24/21 polyethylene glycol 3350 [Miralax] 17 g PO DAILY 01/24/21 01/24/21 tamsulosin [Flomax] 0.4 mg PO DAILY 01/24/21 01/24/21 turmeric root extract 500 mg PO DAILY 01/24/21 01/24/21 Allergies Allergy/AdvReac Type Severity Reaction Status Date / Time No Known Allergies Allergy Unverified 04/22/19 13:32 Review of Systems Review of Systems: Narrative: Gen.: Denies fevers or chills Eyes: Denies eye pain or visual change ENT: Denies congestion Respiratory: For shortness of breath CV: Reports chest pain GI: Denies abdominal pain nausea, emesis or diarrhea Musculoskeletal: Denies back pain or muscle pain Neuro: Denies numbness, tingling, weakness or focal weakness Skin: Denies rash Except as documented, all other systems reviewed and negative [facility] Past Medical History Medical History CVA (cerebral vascular accident) Hyperlipidemia Hypertension Seizure disorder Surgical History Surgical History (Updated 01/23/21 @ 22:29 by Alina Tello NP) History of tracheostomy S/P aneurysm repair Family History Family History Unknown Unknown family medical history Social History Social History (Updated 02/11/21 @ 02:11 by Bridger Romero DO) Smoking status: Former smoker Gender identity (if verbalized by the patient): Male Spiritual care concerns: No Exam Narrative: Exam Narrative: APPEARANCE: No acute distress, nontoxic, resting in bed EYES: EOMI HEENT: Normocephalic, atraumatic, OMM RESPIRATORY: No respiratory distress Clear to auscultation bilaterally with no rhonchi wheezing or rales. CARDIOVASCULAR: Regular rate and rhythm without murmurs rubs or gallops. ABDOMINAL: Soft, nontender, nondistended, no rebound or guarding MUSCULOSKELETAl: Moves all extremities. No clubbing, cyanosis or edema. NEURO: Awake and alert. Following commands, speech normal, no focal deficits SKIN:: Warm, dry. No rashes lesions or abrasions PSYCHIATRIC: Normal affect/mood, Course Course Emergency Course: Patient states chest pain is resolved at this time Reviewed chest and CT scan. Patient with Covid a month ago has been requiring oxygen since that time CT findings secondary to post Covid Discussed with Dr. Ramsay presentation work-up agrees with admission at this time Discussed with earnest
[2021-02-11 02:39] LABS: Basophils Percent Auto 0.5 % (0.2-1.2); Eosinophils Absolute Auto 0.3 K/mm3 (0-0.3); Eosinophils Percent Auto 5.7 % (0-4.4); Hematocrit 39.4 % (42.0-52.0); Hemoglobin 12.7 g/dL (14.0-18.0); Immature Granulocyte Absolute 0.01 K/mm3 (0.00-0.031); Immature Granulocyte Percent A 0.2 % (0-0.5); Lymphocytes Absolute Auto 1.33 K/mm3 (0.9-3.2); Lymphocytes Percent Auto 22.4 % (18.3-44.2); Mean Corpuscular HGB Conc 32.2 g/dl (32-36); Mean Corpuscular Volume 96.1 fl (80-100); Mean Platelet Volume 9.4 fl (7.4-10.4); Monocytes Absolute Auto 0.7 K/mm3 (0.1-0.6); Monocytes Percent Auto 11.8 % (2.6-8.5); Neutrophils Absolute Auto 3.5 K/mm3 (1.3-6.7); Neutrophils Percent Auto 59.4 % (45.5-73.1); Platelet Count Result 242 k/mm3 (150-375); Red Cell Distribution Width 14.7 % (11.5-14.5); White Blood Count 5.9 K/mm3 (4.5-10.0)
[2021-02-11 02:51] LABS: Anion Gap 4 mmol/L (8-16); Blood Urea Nitrogen 14 mg/dL (9-20); Calcium 8.6 mg/dL (8.4-10.2); Carbon Dioxide 28 mmol/L (22-30); Chloride 112 mmol/L (98-107); Estimated CRCL calculation 63 ml/min; Estimated Glomerular Filt Rate > 60; Glucose 110 mg/dL (75-110); Potassium 3.9 mmol/L (3.4-5.0); Sodium 144 mmol/L (137-145)
[2021-02-11 03:02] LABS: Troponin I < 0.012 ng/mL (0.000-0.034)
[2021-02-11 03:04] LABS: Prothrombin Time 13.9 Seconds (11.1-14.7)
[2021-02-11 03:05] LABS: Partial Thromboplastin Time 32.1 SECONDS (22.3-36.8)
[2021-02-11 05:31] LABS: Troponin I < 0.012 ng/mL (0.000-0.034)
--- NOTE | 2021-02-11 06:00 | ADMGEN ---
This patient, Ignacia Connelly, was admitted to IMU Room 214-01. Patient/family oriented to hospital policies and general routines including ID bracelet, bed and alarms, visiting hours, pain management, procedures, bathroom and other care routines, personal items, smoking policy, room service/diet, and visiting hours. Information on how to activate the Rapid Response Team has been discussed. Patient/Family are encouraged to report perceived risks to care and to ask questions if they do not understand what they are told or what they should do.
[2021-02-11 08:32] LABS: Troponin I < 0.012 ng/mL (0.000-0.034)
[2021-02-11] MEDS: UMECLIDINIUM/VILANTEROL 62.5-25 MCG ELLIPTA 1 PUFF INHALATION (08:41)
[2021-02-11] MEDS: ONDANSETRON INJ 4 MG/2 ML VIAL IV PUSH (10:05)
[2021-02-11] MEDS: BRIMONIDINE TARTRATE 0.1% 5 ML OPHTH DROPS 1 DROP RIGHT EYE ×2 (11:19→17:57)
[2021-02-11] MEDS: MULTIVITAMINS /C LUTEIN (CENTRUM SILVER) TABLET *BKC 1 TAB PO (11:19)
[2021-02-11] MEDS: levETIRAcetam 500 MG TABLET 1000 MG PO ×2 (11:20→17:57)
[2021-02-11] MEDS: ESCITALOPRAM OXALATE 10 MG TABLET PO (11:20)
[2021-02-11] MEDS: BACLOFEN 10 MG TABLET PO (11:20)
[2021-02-11] MEDS: ATORVASTATIN 10 MG TABLET PO (11:20)
[2021-02-11] MEDS: ASPIRIN 81 MG ENTERIC TABLET PO (11:20)
[2021-02-11] MEDS: OLMESARTAN MEDOXOMIL 20 MG TABLET 40 MG PO (11:20)
[2021-02-11] MEDS: CHOLECALCIFEROL 400 UNITS TABLET (VIT D) PO (11:20)
[2021-02-11] MEDS: carvediloL 25 MG TABLET PO ×2 (11:20→20:56)
[2021-02-11] MEDS: TAMSULOSIN HCL 0.4 MG CAPSULE PO (11:20)
[2021-02-11] MEDS: hydrALAZINE HCL 50 MG TABLET PO (11:20)
[2021-02-11] MEDS: FUROSEMIDE 20 MG TABLET PO (11:20)
[2021-02-11] MEDS: ENOXAPARIN 40 MG/0.4 ML SYRINGE SUB-Q ×2 (11:21→20:56)
--- NOTE | 2021-02-11 15:29 | PM.IMHP ---
H&P: HPI History of Present Illness Date/Time: 02/11/21 15:29 patient is 70-year-old male presents of assisted living recently discharged 2 weeks ago after he was treated COVID-19 on oxygen as needed however patient was not on his oxygen and developed shortness of breath and CP, patient is very hard of hearing and very somnolent unable to provide detailed review of symptoms or history as most of the history is recorded from the chart, Patient had 3 sets of cardiac enzymes which are normal and there is no acute changes on EKG, to further evaluate patient had CTA of chest it showed Multifocal groundglass opacification, consistent with pneumonia suspect persistent covid pneumonia, it seem patient is having slow recovery from is COVID-19 pneumonia unlikely bacterial pneumonia as patient does not have fever and his white counts are not elevated, will provider updraft and dexamethasone. will continue monitor, patient may need to be placed under direct care in the NH, will have PT/OT evaluate patient. Chief Complaint: Chest pain Review of Systems Review of Systems: ROS unobtainable: Yes unobtainable due to medical condition PMFSH Past Medical History Medical History CVA (cerebral vascular accident) Hyperlipidemia Hypertension Seizure disorder Surgical History Surgical History (Updated 01/23/21 @ 22:29 by Alina Tello NP) History of tracheostomy S/P aneurysm repair Family History Family History Unknown Unknown family medical history Social History Social History (Updated 02/11/21 @ 02:11 by Bridger Romero DO) Smoking status: Former smoker Alcohol intake: current Substance use: never Gender identity (if verbalized by the patient): Male Spiritual care concerns: No Meds Home Medications and Allergies Home Medications Medication Instructions Recorded Confirmed Type Adults Multivitamin 1 tablet PO DAILY 01/24/21 02/11/21 History Anoro Ellipta 1 inh INHALATION DAILY 01/24/21 02/11/21 History aspirin 81 mg PO DAILY 01/24/21 02/11/21 History atorvastatin [Lipitor] 10 mg PO DAILY 01/24/21 02/11/21 History baclofen 10 mg PO TID 01/24/21 02/11/21 History carvedilol [Coreg] 25 mg PO BID 01/24/21 02/11/21 History cholecalciferol (vitamin D3) 10 mcg PO DAILY 01/24/21 02/11/21 History docusate sodium [Colace] 100 mg PO BID 01/24/21 02/11/21 History escitalopram oxalate [Lexapro] 10 mg PO DAILY 01/24/21 02/11/21 History furosemide [Lasix] 20 mg PO DAILY 01/24/21 02/11/21 History hydralazine 50 mg PO TID 01/24/21 02/11/21 History levetiracetam [Keppra] 1,000 mg PO BID 01/24/21 02/11/21 History olmesartan [Benicar] 40 mg PO DAILY 01/24/21 02/11/21 History polyethylene glycol 3350 [Miralax] 17 g PO DAILY 01/24/21 02/11/21 History tamsulosin [Flomax] 0.4 mg PO DAILY 01/24/21 02/11/21 History turmeric root extract 500 mg PO DAILY 01/24/21 02/11/21 History acetaminophen [Acetaminophen Extra 500 mg PO Q6H PRN 02/11/21 02/11/21 History Strength] brimonidine [Alphagan P] 1 drp RIGHT EYE BID 02/11/21 02/11/21 History Allergies Allergy/AdvReac Type Severity Reaction Status Date / Time No Known Allergies Allergy Unverified 04/22/19 13:32 Vital Signs Vital Signs - 24 hr 02/11/21 02:11 02/11/21 03:10 02/11/21 04:11 Temperature 97.8 F Pulse Rate 78 78 73 Respiratory Rate 24 H 16 22 H Blood Pressure 141/97 H 138/103 H 124/84 Pulse Oximetry 97 94 96 02/11/21 05:14 02/11/21 06:00 02/11/21 08:00 Temperature Pulse Rate 78 78 69 Respiratory Rate 20 20 Blood Pressure 144/91 H Pulse Oximetry 97 97 95 02/11/21 08:23 02/11/21 08:42 02/11/21 10:00 Temperature 96.3 F L Pulse Rate 70 74 Respiratory Rate 22 H Blood Pressure 128/73 Pulse Oximetry 97 97 02/11/21 11:20 02/11/21 11:25 02/11/21 12:00 Temperature 97.6 F Pulse Rate 92 80 92 Respiratory Rate 14 Blood Pressure 112
[2021-02-11] MEDS: ALBUTEROL SULFATE NEB 2.5 MG/0.5 ML INH INHALATION (16:12)
[2021-02-11] MEDS: IPRATROPIUM BR 0.02% INH SOLN 0.5 MG/2.5 ML VIAL INHALATION (16:12)
[2021-02-11] MEDS: DEXAMETHASONE SOD PHOS INJ 4 MG/ML VIAL 6 MG IV PUSH (17:57)
[2021-02-11] MEDS: ALBUTEROL SULFATE (*SP) AEROSOL 1 PUFF 2 PUFF INHALATION (19:59)
[2021-02-12] VITALS (19 sets, daily range): BP systolic 106–124; BP diastolic 60–92; PULSE 71–98; RESP 16–20; TEMP 36.1–36.8; O2SAT 92–98
[2021-02-12] MEDS: ALBUTEROL SULFATE (*SP) AEROSOL 1 PUFF 2 PUFF INHALATION ×5 (00:09→17:11)
[2021-02-12 04:57] LABS: Basophils Percent Auto 0.2 % (0.2-1.2); Hematocrit 39.2 % (42.0-52.0); Hemoglobin 12.4 g/dL (14.0-18.0); Immature Granulocyte Absolute 0.02 K/mm3 (0.00-0.031); Immature Granulocyte Percent A 0.5 % (0-0.5); Lymphocytes Absolute Auto 0.51 K/mm3 (0.9-3.2); Lymphocytes Percent Auto 12.1 % (18.3-44.2); Mean Corpuscular HGB Conc 31.6 g/dl (32-36); Mean Corpuscular Hemoglobin 30.4 pg (26-34); Mean Corpuscular Volume 96.1 fl (80-100); Mean Platelet Volume 9.6 fl (7.4-10.4); Monocytes Absolute Auto 0.1 K/mm3 (0.1-0.6); Monocytes Percent Auto 2.6 % (2.6-8.5); Neutrophils Absolute Auto 3.6 K/mm3 (1.3-6.7); Neutrophils Percent Auto 84.6 % (45.5-73.1); Platelet Count Result 248 k/mm3 (150-375); Red Blood Count 4.08 M/mm3 (4.6-6.20); Red Cell Distribution Width 14.4 % (11.5-14.5); White Blood Count 4.2 K/mm3 (4.5-10.0)
[2021-02-12 05:03] LABS: Anion Gap 4 mmol/L (8-16); Blood Urea Nitrogen 16 mg/dL (9-20); Carbon Dioxide 29 mmol/L (22-30); Chloride 111 mmol/L (98-107); Estimated CRCL calculation 66 ml/min; Estimated Glomerular Filt Rate > 60; Glucose 134 mg/dL (75-110); Potassium 4.5 mmol/L (3.4-5.0); Sodium 144 mmol/L (137-145)
[2021-02-12] MEDS: DEXAMETHASONE SOD PHOS INJ 4 MG/ML VIAL 6 MG IV PUSH (10:13)
[2021-02-12] MEDS: ENOXAPARIN 40 MG/0.4 ML SYRINGE SUB-Q ×2 (10:14→21:02)
[2021-02-12] MEDS: MULTIVITAMINS /C LUTEIN (CENTRUM SILVER) TABLET *BKC 1 TAB PO (10:15)
[2021-02-12] MEDS: OLMESARTAN MEDOXOMIL 20 MG TABLET 40 MG PO (10:15)
[2021-02-12] MEDS: FUROSEMIDE 20 MG TABLET PO (10:15)
[2021-02-12] MEDS: ASPIRIN 81 MG ENTERIC TABLET PO (10:15)
[2021-02-12] MEDS: TAMSULOSIN HCL 0.4 MG CAPSULE PO (10:15)
[2021-02-12] MEDS: levETIRAcetam 500 MG TABLET 1000 MG PO ×2 (10:15→17:11)
[2021-02-12] MEDS: CHOLECALCIFEROL 400 UNITS TABLET (VIT D) PO (10:15)
[2021-02-12] MEDS: ATORVASTATIN 10 MG TABLET PO (10:15)
[2021-02-12] MEDS: carvediloL 25 MG TABLET PO ×2 (10:15→21:02)
[2021-02-12] MEDS: BRIMONIDINE TARTRATE 0.1% 5 ML OPHTH DROPS 1 DROP RIGHT EYE ×2 (10:16→17:11)
[2021-02-12] MEDS: ESCITALOPRAM OXALATE 10 MG TABLET PO (10:16)
[2021-02-12] MEDS: UMECLIDINIUM/VILANTEROL 62.5-25 MCG ELLIPTA 1 PUFF INHALATION (10:20)
--- NOTE | 2021-02-12 17:04 | PM.IMPN ---
Progress Note: A&P Assessment and Plan (1) Chest pain: Code(s): R07.9 - Chest pain, unspecified Status: Acute Assessment and Plan: 02/12/21 17:04 02/11 patient is 70-year-old male presents of assisted living recently discharged 2 weeks ago after he was treated for COVID-19 on oxygen as needed however patient was not on his oxygen and developed shortness of breath and CP, patient is very hard of hearing and very somnolent unable to provide detailed review of symptoms or history as most of the history is recorded from the chart, Patient had 3 sets of cardiac enzymes which are normal and there is no acute changes on EKG, to further evaluate patient had CTA of chest it showed Multifocal groundglass opacification, consistent with pneumonia suspect persistent covid pneumonia, it seem patient is having slow recovery from is COVID-19 pneumonia, unlikely bacterial pneumonia as patient does not have fever and his white counts are not elevated, will provider updraft and dexamethasone. will continue monitor, patient may need to be placed under direct care in the NH, will have PT/OT evaluate patient. Today patient still appears confused was not able to participate physical therapy very well and needed more assistance most likely patient has slow recovery from COVID-19, will continue to provide physical therapy and once clinically stable patient will benefit going rehab on eventually will need more assistance for his ADLs, will continue to monitor (2) Pneumonia: Code(s): J18.9 - Pneumonia, unspecified organism Status: Acute Assessment and Plan: Most likely persistent COVID-19 pneumonia will continue updraft and start the patient on dexamethasone (3) Hypertension: Code(s): I10 - Essential (primary) hypertension Status: Chronic Assessment and Plan: Will continue home regimen and monitor (4) Hyperlipidemia: Code(s): E78.5 - Hyperlipidemia, unspecified Status: Chronic Assessment and Plan: Will continue home regimen Subjective Date/time seen: 02/12/21 17:04 02/11 patient is 70-year-old male presents of assisted living recently discharged 2 weeks ago after he was treated for COVID-19 on oxygen as needed however patient was not on his oxygen and developed shortness of breath and CP, patient is very hard of hearing and very somnolent unable to provide detailed review of symptoms or history as most of the history is recorded from the chart, Patient had 3 sets of cardiac enzymes which are normal and there is no acute changes on EKG, to further evaluate patient had CTA of chest it showed Multifocal groundglass opacification, consistent with pneumonia suspect persistent covid pneumonia, it seem patient is having slow recovery from is COVID-19 pneumonia, unlikely bacterial pneumonia as patient does not have fever and his white counts are not elevated, will provider updraft and dexamethasone. will continue monitor, patient may need to be placed under direct care in the NH, will have PT/OT evaluate patient. Today patient still appears confused was not able to participate physical therapy very well and needed more assistance most likely patient has slow recovery from COVID-19, will continue to provide physical therapy and once clinically stable patient will benefit going rehab on eventually will need more assistance for his ADLs, will continue to monitor Review of Systems Review of Systems: All systems reviewed & are unremarkable except as noted in HPI and below Exam Narrative: Exam Narrative: Moderately obese Patient is comfortable, NAD HEENT: eyes are clear and none icteric LUNGS:CTA HEART: RR S1S2 ABD: BS+, Soft and nontender Lower extremities: no edema SKIN: nonjaundiced Neuro: grossly intact. Objective Data Vital Signs Vital Signs: Vital Signs - 24 hr 02/11/21 17:27 02/11/21 18:00 02/11/21 19:59 Temperature 96.6 F L Pulse Rate 74 69 Respiratory Rate 22 H Blood Pressure
[2021-02-13] VITALS (18 sets, daily range): BP systolic 121–159; BP diastolic 67–76; PULSE 64–85; RESP 16–20; TEMP 36.2–36.6; O2SAT 92–100
[2021-02-13] MEDS: BRIMONIDINE TARTRATE 0.1% 5 ML OPHTH DROPS 1 DROP RIGHT EYE ×2 (08:38→17:03)
[2021-02-13] MEDS: ASPIRIN 81 MG ENTERIC TABLET PO (08:38)
[2021-02-13] MEDS: OLMESARTAN MEDOXOMIL 20 MG TABLET 40 MG PO (08:38)
[2021-02-13] MEDS: carvediloL 25 MG TABLET PO ×2 (08:38→21:17)
[2021-02-13] MEDS: ATORVASTATIN 10 MG TABLET PO (08:38)
[2021-02-13] MEDS: CHOLECALCIFEROL 400 UNITS TABLET (VIT D) PO (08:38)
[2021-02-13] MEDS: MULTIVITAMINS /C LUTEIN (CENTRUM SILVER) TABLET *BKC 1 TAB PO (08:38)
[2021-02-13] MEDS: TAMSULOSIN HCL 0.4 MG CAPSULE PO (08:38)
[2021-02-13] MEDS: ESCITALOPRAM OXALATE 10 MG TABLET PO (08:38)
[2021-02-13] MEDS: DEXAMETHASONE SOD PHOS INJ 4 MG/ML VIAL 6 MG IV PUSH (08:38)
[2021-02-13] MEDS: levETIRAcetam 500 MG TABLET 1000 MG PO ×2 (08:38→17:03)
[2021-02-13] MEDS: FUROSEMIDE 20 MG TABLET PO (08:39)
[2021-02-13] MEDS: UMECLIDINIUM/VILANTEROL 62.5-25 MCG ELLIPTA 1 PUFF INHALATION (08:39)
[2021-02-13] MEDS: ENOXAPARIN 40 MG/0.4 ML SYRINGE SUB-Q ×2 (08:39→21:17)
[2021-02-13] MEDS: ALBUTEROL SULFATE (*SP) AEROSOL 1 PUFF 2 PUFF INHALATION ×4 (08:49→21:00)
--- NOTE | 2021-02-13 17:16 | PM.IMPN ---
Progress Note: A&P Assessment and Plan (1) Chest pain: Code(s): R07.9 - Chest pain, unspecified Status: Acute Assessment and Plan: 02/13/21 17:16 02/11 patient is 70-year-old male presents of assisted living recently discharged 2 weeks ago after he was treated for COVID-19 on oxygen as needed however patient was not on his oxygen and developed shortness of breath and CP, patient is very hard of hearing and very somnolent unable to provide detailed review of symptoms or history as most of the history is recorded from the chart, Patient had 3 sets of cardiac enzymes which are normal and there is no acute changes on EKG, to further evaluate patient had CTA of chest it showed Multifocal groundglass opacification, consistent with pneumonia suspect persistent covid pneumonia, it seem patient is having slow recovery from is COVID-19 pneumonia, unlikely bacterial pneumonia as patient does not have fever and his white counts are not elevated, will provider updraft and dexamethasone. will continue monitor, patient may need to be placed under direct care in the NH, will have PT/OT evaluate patient. 02/12 patient still appears confused was not able to participate physical therapy very well and needed more assistance most likely patient has slow recovery from COVID-19, will continue to provide physical therapy and once clinically stable patient will benefit going rehab on eventually will need more assistance for his ADLs, will continue to monitor. 02/13 patient still confused, it seems patient is having lingering effect of COVID-19, he did work with physical therapy and requiring 1 assist, patient also required 2 L of oxygen at home is not using any oxygen during day, however patient does not keep his oxygen on all the time, will continue present management and physical therapy will reassess to tomorrow and possibly discharge the patient back to assisted living (2) Pneumonia: Code(s): J18.9 - Pneumonia, unspecified organism Status: Acute Assessment and Plan: Most likely persistent COVID-19 pneumonia will continue updraft and start the patient on dexamethasone (3) Hypertension: Code(s): I10 - Essential (primary) hypertension Status: Chronic Assessment and Plan: Will continue home regimen and monitor (4) Hyperlipidemia: Code(s): E78.5 - Hyperlipidemia, unspecified Status: Chronic Assessment and Plan: Will continue home regimen Subjective Date/time seen: 02/13/21 17:16 02/11 patient is 70-year-old male presents of assisted living recently discharged 2 weeks ago after he was treated for COVID-19 on oxygen as needed however patient was not on his oxygen and developed shortness of breath and CP, patient is very hard of hearing and very somnolent unable to provide detailed review of symptoms or history as most of the history is recorded from the chart, Patient had 3 sets of cardiac enzymes which are normal and there is no acute changes on EKG, to further evaluate patient had CTA of chest it showed Multifocal groundglass opacification, consistent with pneumonia suspect persistent covid pneumonia, it seem patient is having slow recovery from is COVID-19 pneumonia, unlikely bacterial pneumonia as patient does not have fever and his white counts are not elevated, will provider updraft and dexamethasone. will continue monitor, patient may need to be placed under direct care in the NH, will have PT/OT evaluate patient. 02/12 patient still appears confused was not able to participate physical therapy very well and needed more assistance most likely patient has slow recovery from COVID-19, will continue to provide physical therapy and once clinically stable patient will benefit going rehab on eventually will need more assistance for his ADLs, will continue to monitor. 02/13 patient still confused, it seems patient is having lingering effect of COVID-19, he did work with physical therapy and requiring 1 as
--- NOTE | 2021-02-13 19:49 | PC.NURSE ---
report given to micah pineda at 1940. patient transferred to [address] [place] [address] surg
--- NOTE | 2021-02-13 20:03 | PC.NURSE ---
This patient, Ignaica Connelly, was received from IMU on 02/13/21 at 2002. Patient/family oriented to unit policies and routines
[2021-02-14 06:00] VITALS: BP 137/83; PULSE 65; RESP 16; TEMP 36.6; O2SAT 100
[2021-02-14 08:00] VITALS: O2SAT 93
[2021-02-14 09:12] VITALS: PULSE 65
[2021-02-14] MEDS: ALBUTEROL SULFATE (*SP) AEROSOL 1 PUFF 2 PUFF INHALATION ×2 (09:12→11:36)
[2021-02-14] MEDS: carvediloL 25 MG TABLET PO (09:12)
[2021-02-14] MEDS: ASPIRIN 81 MG ENTERIC TABLET PO (09:12)
[2021-02-14] MEDS: MULTIVITAMINS /C LUTEIN (CENTRUM SILVER) TABLET *BKC 1 TAB PO (09:13)
[2021-02-14] MEDS: OLMESARTAN MEDOXOMIL 20 MG TABLET 40 MG PO (09:13)
[2021-02-14] MEDS: FUROSEMIDE 20 MG TABLET PO (09:13)
[2021-02-14] MEDS: BRIMONIDINE TARTRATE 0.1% 5 ML OPHTH DROPS 1 DROP RIGHT EYE (09:13)
[2021-02-14] MEDS: CHOLECALCIFEROL 400 UNITS TABLET (VIT D) PO (09:13)
[2021-02-14] MEDS: DEXAMETHASONE SOD PHOS INJ 4 MG/ML VIAL 6 MG IV PUSH (09:13)
[2021-02-14] MEDS: TAMSULOSIN HCL 0.4 MG CAPSULE PO (09:13)
[2021-02-14] MEDS: ESCITALOPRAM OXALATE 10 MG TABLET PO (09:14)
[2021-02-14] MEDS: UMECLIDINIUM/VILANTEROL 62.5-25 MCG ELLIPTA 1 PUFF INHALATION (09:14)
[2021-02-14] MEDS: levETIRAcetam 500 MG TABLET 1000 MG PO (09:14)
[2021-02-14] MEDS: ENOXAPARIN 40 MG/0.4 ML SYRINGE SUB-Q (09:14)
[2021-02-14] MEDS: ATORVASTATIN 10 MG TABLET PO (09:14)
[2021-02-14 10:21] VITALS: O2SAT 93
--- NOTE | 2021-02-14 12:00 | PM.DS ---
DS: Admitting Diagnosis Admitting Diagnosis Admitting Diagnosis: Chief Complaint: Chest pain DS: Discharge Diagnosis Discharge Diagnosis (1) Chest pain: Code(s): R07.9 - Chest pain, unspecified Status: Acute Assessment and Plan: 02/13/21 17:16 02/11 patient is 70-year-old male presents of assisted living recently discharged 2 weeks ago after he was treated for COVID-19 on oxygen as needed however patient was not on his oxygen and developed shortness of breath and CP, patient is very hard of hearing and very somnolent unable to provide detailed review of symptoms or history as most of the history is recorded from the chart, Patient had 3 sets of cardiac enzymes which are normal and there is no acute changes on EKG, to further evaluate patient had CTA of chest it showed Multifocal groundglass opacification, consistent with pneumonia suspect persistent covid pneumonia, it seem patient is having slow recovery from is COVID-19 pneumonia, unlikely bacterial pneumonia as patient does not have fever and his white counts are not elevated, will provider updraft and dexamethasone. will continue monitor, patient may need to be placed under direct care in the NH, will have PT/OT evaluate patient. 02/12 patient still appears confused was not able to participate physical therapy very well and needed more assistance most likely patient has slow recovery from COVID-19, will continue to provide physical therapy and once clinically stable patient will benefit going rehab on eventually will need more assistance for his ADLs, will continue to monitor. 02/13 patient still confused, it seems patient is having lingering effect of COVID-19, he did work with physical therapy and requiring 1 assist, patient also required 2 L of oxygen at home is not using any oxygen during day, however patient does not keep his oxygen on all the time, will continue present management and physical therapy will reassess to tomorrow and possibly discharge the patient back to assisted living (2) Pneumonia: Code(s): J18.9 - Pneumonia, unspecified organism Status: Acute Assessment and Plan: Most likely persistent COVID-19 pneumonia will continue updraft and start the patient on dexamethasone (3) Hypertension: Code(s): I10 - Essential (primary) hypertension Status: Chronic Assessment and Plan: Will continue home regimen and monitor (4) Hyperlipidemia: Code(s): E78.5 - Hyperlipidemia, unspecified Status: Chronic Assessment and Plan: Will continue home regimen DS: Summary Hospital Course Reason for hospitalization: patient is 70-year-old male presents of assisted living recently discharged 2 weeks ago after he was treated COVID-19 on oxygen as needed however patient was not on his oxygen and developed shortness of breath and CP, patient is very hard of hearing and very somnolent unable to provide detailed review of symptoms or history as most of the history is recorded from the chart, Patient had 3 sets of cardiac enzymes which are normal and there is no acute changes on EKG, to further evaluate patient had CTA of chest it showed Multifocal groundglass opacification, consistent with pneumonia suspect persistent covid pneumonia, it seem patient is having slow recovery from is COVID-19 pneumonia unlikely bacterial pneumonia as patient does not have fever and his white counts are not elevated, will provider updraft and dexamethasone. will continue monitor, patient may need to be placed under direct care in the NH, will have PT/OT evaluate patient. Chief Complaint: Chest pain Hospital Course: 02/11 patient is 70-year-old male presents of assisted living recently discharged 2 weeks ago after he was treated for COVID-19 on oxygen as needed however patient was not on his oxygen and developed shortness of breath and CP, patient is very hard of hearing and very somnolent unable to provide detailed review of symptoms or history as most of
== END 2021-02-14 14:49 | DRG 177 ==
LOC: ANHED 05:09 → ANHIMU 05:17 → ANH3MEDSUR 02-14 02:33 → ANHIMU 02-15 14:09
PROVIDERS: Admitting Provider Internal Medicine; Emergency Provider Emergency Medicine; Visit Provider Family Medicine
DX: U07.1 COVID-19 (principal); J12.82 Pneumonia due to coronavirus disease 2019; I10 Essential (primary) hypertension; E78.5 Hyperlipidemia, unspecified; G40.909 Epilepsy, unspecified, not intractable, without status epilepticus; E66.9 Obesity, unspecified; Z68.34 Body mass index [BMI] 34.0-34.9, adult; Z86.73 Personal history of transient ischemic attack (TIA), and cerebral infarction without residual deficits; Z87.891 Personal history of nicotine dependence
CPT/HCPCS: 36415; 71045; 71275; 80048; 84484; 85025; 85610; 85730; 93005; 94640; 96372; 96374; 96375; 96376; 97110; 97116; 97161; 97165; 97535; 99285; A9270; G0378; J1100; J1650; J2405; Q9967

== ENCOUNTER 2022-09-07 15:49 | Emergency (ER) | payer MEDICARE, SELFPAY ==
--- NOTE | ~2022-09-07 | XR_ITS ---
EXAMINATION: XR chest 2V Exam Date/Time: 09/07/2022 16:20 CDT HISTORY: Chest Pain, HX CVA, SOB Comparison: X-ray chest and CTPA 02/11/2021. RESULT: Lines, tubes, and devices: Shunt tubing traverses the right chest, possible kink over the right uppe r quadrant, versus projectional artifact. Lungs and pleura: Severely decreased lung volumes. Limited lateral view. Bibasilar streaky and patch y opacities, with crowding. Persistent dense segmental consolidation in the left pleural effusion lef t lower lobe, with angle blunting. Cardiomediastinal silhouette: Stable. Other: No acute osseous or upper abdominal finding. IMPRESSION: Atelectasis/consolidation in the left lower lobe. Small. Artifact versus kinking of the visualized sh unt tubing. If there are clinical findings of shunt dysfunction, consider further evaluation with a s bernal series. Reviewed, dictated and finalized at location K. IMPRESSION: Atelectasis/consolidation in the left lower lobe. Small. Artifact versus kinkin g of the visualized shunt tubing. If there are clinical findings of shunt dysfu nction, consider further evaluation with a shunt series.
[2022-09-07 15:51] VITALS: BP 137/76; PULSE 100; RESP 20; TEMP 37.3; O2SAT 94
--- NOTE | 2022-09-07 15:51 | PC.NURSE ---
Attempted to obtain blood at this time with difficulty x2. Will attempt again once patient gets into room
--- NOTE | 2022-09-07 15:52 | ECG_ITS ---
Measurements Intervals [place] Rate: 91 P: 62 CO: 172 QRS: -28 QRSD: 82 T: 18 QT: 349 QTc: 429 Interpretive Statements SINUS RHYTHM WITH PREMATURE ATRIAL CONTRACTIONS LOW QRS VOLTAGE IN PRECORDIAL LEADS NONSPECIFIC T-WAVE ABNORMALITY BORDERLINE ECG COMPARED TO ECG 02/11/2021 02:11:08 LOW-VOLTAGE QRS APPRECIATED Electronically Signed On 09-07-2022 16:06:15 CDT by Haroldo Reardon M.D.
[2022-09-07 20:38] LABS: Basophils Percent Auto 0.5 % (0.2-1.2); Eosinophils Percent Auto 0.2 % (0-4.4); Hemoglobin 13.9 g/dL (14.0-18.0); Immature Granulocyte Absolute 0.02 K/mm3 (0.00-0.031); Immature Granulocyte Percent A 0.3 % (0-0.5); Lymphocytes Absolute Auto 0.76 K/mm3 (0.9-3.2); Lymphocytes Percent Auto 11.4 % (18.3-44.2); Mean Corpuscular HGB Conc 32.3 g/dl (32-36); Mean Corpuscular Hemoglobin 31.7 pg (26-34); Mean Corpuscular Volume 97.9 fl (80-100); Mean Platelet Volume 9.6 fl (7.4-10.4); Monocytes Absolute Auto 0.7 K/mm3 (0.1-0.6); Monocytes Percent Auto 11.1 % (2.6-8.5); Neutrophils Absolute Auto 5.1 K/mm3 (1.3-6.7); Neutrophils Percent Auto 76.5 % (45.5-73.1); Platelet Count Result 182 k/mm3 (150-375); Red Blood Count 4.39 M/mm3 (4.6-6.20); White Blood Count 6.6 K/mm3 (4.5-10.0)
[2022-09-07 20:50] LABS: Alanine Aminotransferase 20 U/L (6-50); Albumin Level 4.3 g/dL (3.5-5.1); Alkaline Phosphatase 73 U/L (38-126); Anion Gap 9 mmol/L (8-16); Aspartate Amino Transferase 22 U/L (17-59); Bilirubin,Total 0.6 mg/dL (0.2-1.3); Blood Urea Nitrogen 21 mg/dL (9-20); Calcium 9.2 mg/dL (8.4-10.2); Carbon Dioxide 25 mmol/L (22-30); Chloride 107 mmol/L (98-107); Estimated CRCL calculation 64 ml/min; Estimated Glomerular Filt Rate > 60; Glucose 114 mg/dL (65-110); INR 1.2; Lipase 55 U/L (23-300); Potassium 3.7 mmol/L (3.4-5.0); Prothrombin Time 14.6 Seconds (11.1-14.7); Sodium 141 mmol/L (137-145)
[2022-09-07 20:52] LABS: Partial Thromboplastin Time 33.1 SECONDS (22.3-36.8)
[2022-09-07 21:02] LABS: Troponin I < 0.012 ng/mL (0.000-0.034)
--- NOTE | 2022-09-07 21:07 | ED.CHESTPAIN ---
HPI - Chest Pain General Chief Complaint: Chest Pain Stated Complaint: Multiple Complaints, Start Today Time Seen by Provider: 09/07/22 20:57 History of Present Illness HPI narrative: Patient is a 72-year-old male with a history of CVA, hypertension, hyperlipidemia presenting with body aches. Patient resides in an assisted living facility. Yesterday he got a COVID booster and today he was complaining of diffuse body aches. States that his right leg felt more sore than normal. Patient's daughter states that he has had chronic pain in his right leg since his CVA. He also has pain in his left leg related to chronic wounds that he follows at [facility] wound care. He actually has an appointment there tomorrow. Currently, the patient states that he feels fine. States he feels at his baseline. He denies chest pain, shortness of breath, lightheadedness, abdominal pain, nausea or vomiting. Related Data Home Medications Medication Instructions Recorded Confirmed aspirin 81 mg tablet 81 mg PO DAILY 01/24/21 02/11/21 atorvastatin 10 mg tablet (Lipitor) 10 mg PO DAILY 01/24/21 02/11/21 baclofen 10 mg tablet 10 mg PO TID 01/24/21 02/11/21 carvedilol 25 mg tablet (Coreg) 25 mg PO BID 01/24/21 02/11/21 cholecalciferol (vitamin D3) 10 10 mcg PO DAILY 01/24/21 02/11/21 mcg (400 unit) tablet docusate sodium 100 mg capsule 100 mg PO BID 01/24/21 02/11/21 (Colace) escitalopram oxalate 10 mg tablet 10 mg PO DAILY 01/24/21 02/11/21 (Lexapro) furosemide 20 mg tablet (Lasix) 20 mg PO DAILY 01/24/21 02/11/21 hydralazine 50 mg tablet 50 mg PO TID 01/24/21 02/11/21 levetiracetam 1,000 mg tablet 1,000 mg PO BID 01/24/21 02/11/21 (Keppra) multivit with minerals-iron 18 1 tablet PO DAILY 01/24/21 02/11/21 mg-folic ac 400 mcg-vit K 25 mcg tablet (Adults Multivitamin) olmesartan 40 mg tablet (Benicar) 40 mg PO DAILY 01/24/21 02/11/21 polyethylene glycol 3350 17 gram 17 g PO DAILY 01/24/21 02/11/21 oral powder packet (Miralax) tamsulosin 0.4 mg capsule (Flomax) 0.4 mg PO DAILY 01/24/21 02/11/21 turmeric root extract 500 mg PO DAILY 01/24/21 02/11/21 umeclidinium 62.5 mcg-vilanterol 1 inh inhalation DAILY 01/24/21 02/11/21 25 mcg/actuation powdr for inhalation (Anoro Ellipta) acetaminophen 500 mg tablet 500 mg PO Q6H PRN Fever Or Pain 02/11/21 02/11/21 (Acetaminophen Extra Strength) brimonidine 0.1 % eye drops 1 drp RIGHT EYE BID 02/11/21 02/11/21 (Alphagan P) Allergies Allergy/AdvReac Type Severity Reaction Status Date / Time No Known Allergies Allergy Unverified 04/22/19 13:32 Review of Systems Review of Systems: All systems reviewed & are unremarkable except as noted in HPI and below PMFSH Past Medical History Medical History CVA (cerebral vascular accident) Hyperlipidemia Hypertension Seizure disorder Surgical History Surgical History History of tracheostomy S/P aneurysm repair Family History Family History Unknown Unknown family medical history Social History Social History Smoking status: Former smoker Alcohol intake: current Substance use: never Gender identity (if verbalized by the patient): Male Spiritual care concerns: No Exam Narrative: GENERAL: Well-appearing, well-nourished, and in no acute distress. HEAD: Normocephalic, atraumatic. EYES: PERRLA and EOMI. ENT: Nares clear, no rhinorrhea or epistaxis. Mucous membranes moist. NECK: Supple. CHEST: Clear to auscultation. No respiratory distress. HEART: Regular rate and rhythm. No murmur heard. Normal peripheral pulses. ABDOMEN: Soft, nontender, nondistended, normal active bowel sounds. EXTREMITIES: left leg with compression dressing in place SKIN: Warm, dry, no rash. NEURO: No focal deficits. Alert and orien
== END 2022-09-07 21:45 ==
PROVIDERS: Emergency Medicine; Emergency Provider Emergency Medicine
DX: M79.10 Myalgia, unspecified site (principal); M79.605 Pain in left leg; M79.604 Pain in right leg; I10 Essential (primary) hypertension; E78.5 Hyperlipidemia, unspecified; G40.909 Epilepsy, unspecified, not intractable, without status epilepticus; Z87.891 Personal history of nicotine dependence; G89.29 Other chronic pain; Z86.73 Personal history of transient ischemic attack (TIA), and cerebral infarction without residual deficits; Z79.82 Long term (current) use of aspirin; Z79.51 Long term (current) use of inhaled steroids
CPT/HCPCS: 36415; 71046; 80053; 83690; 84484; 85025; 85610; 85730; 93005; 99284

== ENCOUNTER 2022-12-13 22:02 | Inpatient (IN) | payer MEDICARE, SELFPAY ==
[2022-12-13] VITALS (12 sets, daily range): BP systolic 152–155; BP diastolic 78–92; PULSE 114–133; RESP 17–30; TEMP 38.6–39.4; O2SAT 90–95
--- NOTE | ~2022-12-13 | XR_ITS ---
Portable chest x-ray Comparison: 12/16/2022 Clinical History: Shortness of breath Findings: BOOK COVERER shunt present. Stable calcified right midlung granuloma. There is central pulmonary veno us congestive changes. Possible minimal left pleural effusion. Cardiomediastinal silhouette is stabl e. Bones and soft tissues are unremarkable. Impression: Central congestive changes and possible minimal left pleural effusion. BOOK COVERER shunt. Reviewed, dictated and finalized at location . ICATION SUPPORT Impression: Central congestive changes and possible minimal left pleural effusion. BOOK COVERER shunt.
--- NOTE | ~2022-12-13 | CT_ITS ---
EXAMINATION: CTA chest PE protocol DATE: 12/14/2022 01:15 INDICATION: Shortness of breath. TECHNIQUE: Computed tomography angiography (CTA) of the chest was performed with 100 mL Omnipaque-350 intravenous contrast timed to evaluate the pulmonary arteries. Coronal maximum intensity projection 3D-reconstructions were created by the technologist. Automated exposure control and iterative reconst ruction technique were employed. The dose-length product was 989.36 mGy-cm. COMPARISON: Chest CT 02/11/2021 FINDINGS: There is mild emphysema. There is mild atelectasis bilaterally. There are airspace opacitie s with volume loss in left lower lobe. A calcified right lung nodule and calcified right hilar and me diastinal lymph nodes are consistent with old granulomatous disease. Mediastinal lipomatosis is noted . There is prominent extrapleural fat bilaterally. The heart size is normal. No pericardial effusion. Calcifications in the spleen are consistent with old granulomatous disease. There is no pulmonary em bolus. There is mild thoracic spondylosis. There is mild chronic anterior wedging of multiple vertebr al bodies. IMPRESSION: 1. No pulmonary embolus. Sensitivity is moderately decreased by motion artifact. 2. Airspace opacities with volume loss in left lung lower lobe, consistent with atelectasis versus pn eumonia. 3. Mild emphysema. Reviewed, dictated and finalized at location A. CIATE TEAM PHYSICIAN IMPRESSION: 1. No pulmonary embolus. Sensitivity is moderately decreased by motion artifact . 2. Airspace opacities with volume loss in left lung lower lobe, consistent with atelectasis versus pneumonia. 3. Mild emphysema.
--- NOTE | ~2022-12-13 | XR_ITS ---
EXAMINATION: XR chest 1V portable Exam Date/Time: 12/16/2022 16:20 PATIENT REGISTRATION REPRESENTATIVE HISTORY: respiratory distress Comparison: 12/13/2022, CTPA 12/14/2022. RESULT: Lines, tubes, and devices: None. Lungs and pleura: Persistent low lung volumes and subsegmental left basilar opacities. Prominent per icardial fat. Cardiomediastinal silhouette: Stable. Other: No acute osseous or upper abdominal finding. IMPRESSION: Left basilar atelectasis/consolidation, unchanged. Reviewed, dictated and finalized at location K. ENT REGISTRATION REPRESENTATIVE
--- NOTE | ~2022-12-13 | XR_ITS ---
EXAMINATION: XR chest 1V portable DATE: 12/13/2022 22:32 INDICATION: Shortness of breath. TECHNIQUE: A single frontal view of the chest was obtained. COMPARISON: Chest 2 views 09/07/2022, chest CT 12/14/2022 FINDINGS: A calcified right lung nodule and calcified right hilar and mediastinal lymph nodes are con sistent with old granulomatous disease. There is mild atelectasis bilaterally. No pleural effusion or pneumothorax. The heart size is normal. Mediastinal lipomatosis is noted. A right-sided ventriculope ritoneal shunt is noted. IMPRESSION: 1. Mild atelectasis bilaterally. Reviewed, dictated and finalized at location A. T AND VEGETABLE FACTORY WORKER
--- NOTE | ~2022-12-13 | CT_ITS ---
EXAMINATION: CT brain wo con DATE: 12/14/2022 01:14 INDICATION: Speech deficit. TECHNIQUE: Computed tomography (CT) of the head was performed without intravenous contrast. The mA wa s adjusted according to patient size. Iterative reconstruction technique was employed. The dose-lengt h product was 681.00 mGy-cm. COMPARISON: Head CT 01/27/2021 FINDINGS: There is bilateral frontal lobe dural thickening versus chronic subdural hematomas measurin g up to 4 mm in thickness on the right. There is a right parietal ventriculostomy catheter with tip i n body of right lateral ventricle. Right lateral ventricle is small with interval worsening. There is a 4 mm radiopaque foreign body in frontal horn of left lateral ventricle. There is no acute ischemic infarct or abnormal mass lesion. There are scattered areas of low attenuation in the cerebral white matter, which is within normal limits for the patient's age. There is a 2.4 x 1.2 x 1.0 cm intracoron al mass in left orbit. There is a 1.1 x 0.8 x 0.6 cm intracoronal mass in left orbit. There is mild m ucosal thickening in the paranasal sinuses. There is thickening and sclerosis of the singletary of right m axillary sinus which may be from old fracture of chronic sinusitis. The mastoid air cells are normal. There is cerumen in the external auditory canals. IMPRESSION: 1. Small right lateral ventricle with interval worsening with right-sided ventriculostomy catheter in expected position. 2. Bilateral frontal lobe dural thickening versus chronic subdural hematomas measuring up to 4 mm in thickness on the right without change. 3. Two masses in left orbit, new from 01/27/2021. The differential diagnosis includes idiopathic orbita l inflammation, hematomas, and lymphoma. Reviewed, dictated and finalized at location A. LATHER IMPRESSION: 1. Small right lateral ventricle with interval worsening with right-sided ventr iculostomy catheter in expected position. 2. Bilateral frontal lobe dural thickening versus chronic subdural hematomas me asuring up to 4 mm in thickness on the right without change. 3. Two masses in left orbit, new from 01/27/2021. The differential diagnosis incl udes idiopathic orbital inflammation, hematomas, and lymphoma.
--- NOTE | 2022-12-13 22:07 | ECG_ITS ---
Measurements Intervals [place] Rate: 131 P: 49 MD: 160 QRS: -22 QRSD: 92 T: 35 QT: 320 QTc: 473 Interpretive Statements SINUS TACHYCARDIA BORDERLINE R WAVE PROGRESSION, ANTERIOR LEADS BORDERLINE T WAVE ABNORMALITY- ANT/INF LEADS BASELINE ARTIFACT- V4 ABNORMAL ECG COMPARED TO ECG 09/07/2022 15:58:53 SINUS TACHYCARDIA NOW PRESENT Electronically Signed On 12-14-2022 7:17:30 [employer]ARTER SEAMER by Horacio Martin D.O.
[2022-12-13] MEDS: SODIUM CHLORIDE 0.9% IV 1,000 ML 999 ML IV CONT (22:33)
[2022-12-13 23:07] LABS: Alveolar/Arterial O2 Gradient 138.3 mmHg; Base Excess ABG 3.3 mEq/l (+/-2.0); Fractional Inspired Oxygen 36 %; HCO3 ABG 28.2 mEq/l (22.0-26.0); Oxygen Content ABG 17.5 %vol (16.0-22.0); Oxygen Saturation ABG 93.9 % (95.0-100.0); Oxyhemoglobin 91.7 % THb (90.0-100.0); PCO2 ABG 43.7 mmHg (35.0-45.0); PO2 ABG 67.7 mmHg (80.0-100.0); PO2 FiO2 Ratio Arterial Blood 1.88 %; Total Hemoglobin 13.6 g/dL (12.0-18.0); pH ABG 7.427 (7.350-7.450)
[2022-12-13 23:08] LABS: Device NASAL CANNULA; Modified Allen's Test Pass; Site Drawn LEFT RADIAL
[2022-12-13 23:32] LABS: Alanine Aminotransferase 22 U/L (6-50); Albumin Level 3.9 g/dL (3.5-5.1); Alkaline Phosphatase 68 U/L (38-126); Anion Gap 4 mmol/L (8-16); Aspartate Amino Transferase 28 U/L (17-59); Bilirubin,Total 0.5 mg/dL (0.2-1.3); Blood Urea Nitrogen 22 mg/dL (9-20); Calcium 9.2 mg/dL (8.4-10.2); Carbon Dioxide 29 mmol/L (22-30); Chloride 107 mmol/L (98-107); Estimated CRCL calculation 66 ml/min; Estimated Glomerular Filt Rate > 60; Glucose 141 mg/dL (65-110); Magnesium 1.8 mg/dL (1.6-2.3); Potassium 3.9 mmol/L (3.4-5.0); Sodium 140 mmol/L (137-145)
[2022-12-13 23:34] LABS: Lactic Acid Reflex 1.5 mmol/L (0.7-2.0)
[2022-12-13 23:38] LABS: Influenza A QL RT-PCR Negative (Negative); Influenza B QL RT-PCR Negative (Negative); RSV RNA, RT-PCR Negative (Negative); SARS-CoV-2 RNA PCR Negative
[2022-12-13 23:40] LABS: NT Pro B Type Natriuretic Pept 352 pg/mL (19.9-100)
[2022-12-13 23:43] LABS: Troponin I < 0.012 ng/mL (0.000-0.034)
[2022-12-13] MEDS: LORazepam INJ (*CRX) 2 MG/ML VIAL 1 MG IV PUSH (23:43)
--- NOTE | 2022-12-13 23:46 | ED.GENADULT ---
HPI - General Adult General Chief complaint: Shortness of Breath/Dyspnea Stated complaint: SOB Time Seen by Provider: 12/13/22 22:15 History of Present Illness HPI narrative: Patient is a 72-year-old gentleman who presents to Emergency Department with a chief complaint of shortness of breath and altered mental status. The patient is a resident of a local nursing facility and started having increasing shortness of breath and was found to be hypoxic. Patient was satting in the 80s upper 80s and responded with oxygen the patient was also tachycardic in the field and the nursing facility noticed that he was confused speaking and only like short words and reports that the patient had no weakness in his arms or legs. Patient also was febrile. Related Data Home Medications Medication Instructions Recorded Confirmed aspirin 81 mg tablet 81 mg PO DAILY 01/24/21 02/11/21 atorvastatin 10 mg tablet (Lipitor) 10 mg PO DAILY 01/24/21 02/11/21 baclofen 10 mg tablet 10 mg PO TID 01/24/21 02/11/21 carvedilol 25 mg tablet (Coreg) 25 mg PO BID 01/24/21 02/11/21 cholecalciferol (vitamin D3) 10 10 mcg PO DAILY 01/24/21 02/11/21 mcg (400 unit) tablet docusate sodium 100 mg capsule 100 mg PO BID 01/24/21 02/11/21 (Colace) escitalopram oxalate 10 mg tablet 10 mg PO DAILY 01/24/21 02/11/21 (Lexapro) furosemide 20 mg tablet (Lasix) 20 mg PO DAILY 01/24/21 02/11/21 hydralazine 50 mg tablet 50 mg PO TID 01/24/21 02/11/21 levetiracetam 1,000 mg tablet 1,000 mg PO BID 01/24/21 02/11/21 (Keppra) multivit with minerals-iron 18 1 tablet PO DAILY 01/24/21 02/11/21 mg-folic ac 400 mcg-vit K 25 mcg tablet (Adults Multivitamin) olmesartan 40 mg tablet (Benicar) 40 mg PO DAILY 01/24/21 02/11/21 polyethylene glycol 3350 17 gram 17 g PO DAILY 01/24/21 02/11/21 oral powder packet (Miralax) tamsulosin 0.4 mg capsule (Flomax) 0.4 mg PO DAILY 01/24/21 02/11/21 turmeric root extract 500 mg PO DAILY 01/24/21 02/11/21 umeclidinium 62.5 mcg-vilanterol 1 inh inhalation DAILY 01/24/21 02/11/21 25 mcg/actuation powdr for inhalation (Anoro Ellipta) acetaminophen 500 mg tablet 500 mg PO Q6H PRN Fever Or Pain 02/11/21 02/11/21 (Acetaminophen Extra Strength) brimonidine 0.1 % eye drops 1 drp RIGHT EYE BID 02/11/21 02/11/21 (Alphagan P) Allergies Allergy/AdvReac Type Severity Reaction Status Date / Time No Known Allergies Allergy Unverified 04/22/19 13:32 Review of Systems Review of Systems: A 10 system review of systems was completed on the patient and is negative except for what is stated in the HPI. Nursing and ancillary documentation was reviewed. PMFSH Past Medical History Medical History CVA (cerebral vascular accident) Hyperlipidemia Hypertension Seizure disorder Surgical History Surgical History History of tracheostomy S/P aneurysm repair Family History Family History Unknown Unknown family medical history Social History Social History Smoking status: Former smoker Alcohol intake: current Substance use: never Gender identity (if verbalized by the patient): Male Spiritual care concerns: No Exam Narrative: GENERAL: Well-appearing, well-nourished, and in no acute distress. HEAD: Normocephalic, atraumatic. EYES: PERRLA and EOMI. ENT: Nares clear, no rhinorrhea or epistaxis. Mucous membranes moist. NECK: Supple. CHEST: Clear to auscultation. Moderate increased respiratory rate and. HEART: Tachycardic rate and rhythm. No murmur heard. Normal peripheral pulses. ABDOMEN: Soft, nontender, nondistended, normal active bowel sounds. EXTREMITIES: Normal range of motion. No edema. SKIN: Warm, dry, no rash. NEURO: No focal deficits. Alert somewhat confused.. PSYCH: No
[2022-12-13 23:49] LABS: Procalcitonin 1.4 ng/mL
[2022-12-14] VITALS (25 sets, daily range): BP systolic 108–145; BP diastolic 59–81; PULSE 58–124; RESP 15–25; TEMP 36.2–37.4; O2SAT 95–99
[2022-12-14] MEDS: SODIUM CHLORIDE 0.9% IV 1,000 ML 999 ML IV CONT (00:01)
[2022-12-14 00:02] LABS: Basophils Percent Auto 0.2 % (0.2-1.2); Eosinophils Percent Auto 0.1 % (0-4.4); Hematocrit 40.6 % (42.0-52.0); Hemoglobin 13.1 g/dL (14.0-18.0); Immature Granulocyte Absolute 0.08 K/mm3 (0.00-0.031); Immature Granulocyte Percent A 0.4 % (0-0.5); Lymphocytes Absolute Auto 0.45 K/mm3 (0.9-3.2); Lymphocytes Percent Auto 2.5 % (18.3-44.2); Mean Corpuscular HGB Conc 32.3 g/dl (32-36); Mean Corpuscular Hemoglobin 31.3 pg (26-34); Mean Corpuscular Volume 96.9 fl (80-100); Mean Platelet Volume 9.7 fl (7.4-10.4); Monocytes Absolute Auto 1.4 K/mm3 (0.1-0.6); Monocytes Percent Auto 7.6 % (2.6-8.5); Neutrophils Absolute Auto 16.1 K/mm3 (1.3-6.7); Neutrophils Percent Auto 89.2 % (45.5-73.1); Platelet Count Result 227 k/mm3 (150-375); Red Blood Count 4.19 M/mm3 (4.6-6.20); Red Cell Distribution Width 14.5 % (11.5-14.5)
[2022-12-14 00:30] LABS: INR 1.2; Partial Thromboplastin Time 29.5 SECONDS (22.3-36.8); Prothrombin Time 14.4 Seconds (11.1-14.7)
[2022-12-14 00:37] LABS: Appearance Urine Clear (Clear); Bilirubin Urine Negative (Negative); Blood Urine Negative (Negative); Color Urine Yellow (Yellow); Glucose Urine UA Negative (Negative); Ketones Urine Negative (Negative); Leukocyte Esterase Ur Negative LEU/UL (Negative); Nitrate Urine Negative (Negative); Protein Urine Negative (Negative); Urobilinogen Urine 0.2 mg/dL (<2.0)
[2022-12-14 00:43] LABS: Mucus Urine Rare /lpf; RBC Urine 0-2 /hpf (0-2); WBC Urine 0-3 /hpf
[2022-12-14 00:44] LABS: Add Urine Microscopic? NO
--- NOTE | 2022-12-14 01:33 | PC.NURSE ---
Patient trying to get out of bed, taking off his O2 and becoming aggressive. Patient assisted back in bed. New orders received.
[2022-12-14] MEDS: HALOPERIDOL LACTATE 5 MG/ML VIAL 2.5 MG IV PUSH (01:34)
[2022-12-14] MEDS: LORazepam INJ (*CRX) 2 MG/ML VIAL 1 MG IV PUSH (01:35)
--- NOTE | 2022-12-14 01:41 | PC.NURSE ---
Assumed pt care from Maria E Renee RN
--- NOTE | 2022-12-14 02:04 | PM.IMHP ---
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 Source of information is from the patient's brother/healthcare power patent prosecution attorney, Michael. He reports that the patient frequently will take off his oxygen and then will become more confused and short of breath. Usually they put his oxygen back on and his symptoms improved. Evidently nursing staff called from the nursing facility due to patient not being able to talk in full sentences. The patient was found to be satting 89% on room air. He did not have it on all day. The patient was able to follow commands and at baseline usually answers questions and ambulates without assistance. However today the patient has been weaker. Patient was noted to be tachycardic in the field. The facility staff noted that the patient was confused. On arrival to the ER the patient had temperature of a 103?. The patient's brother could not give me much details about what was going on at the [facility] and does not know if the patient had been ill with any other symptoms. The patient's brother denies patient having any history of obstructive sleep apnea but the patient is morbidly obese. He has crowded posterior oropharynx and had episodes of apnea at the time of my evaluation. The patient had received small dose of Haldol and Ativan as he was agitated and trying to leave the ER and was pulling off leads an oxygen. The patient was noted to be coughing at the time of my evaluation. He has not had any went is vomiting or incontinent stools. He has not been incontinent of urine. 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 BPH (benign prostatic hyperplasia) Cerebral aneurysm Chronic respiratory failure with hypoxia, on home O2 therapy Chronic subdural hematoma COPD (chronic obstructive pulmonary disease) Glaucoma Hyperlipidemia Hypertension Morbid obesity Seizure disorder Short-term memory loss Vitamin D deficiency Surgical History Surgical History (Updated 12/14/22 @ 09:10 by Myranda Ramsay DO) History of tracheostomy (~2013) S/P coil embolization of cerebral aneurysm (~2013) Middle cerebral artery aneurysm CIGARETTE MACHINES MECHANIC (ventriculoperitoneal) shunt status Family History Family History Unknown Unknown family medical history Social History Social History (Updated 12/14/22 @ 09:20 by Myranda Ramsay DO) Social History: He is and lives in assisted living. He had 2 children. 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 He quit smoking in 2013. His family reports the ever drink alcohol. Code status: Full code Healthcare power of patent prosecution attorney: Michael Murray (brother) Smoking status: Former smoker Alcohol intake: current Substance use: never Gender identity (if verbalized by the patient): Male Spiritual care concerns: No Meds Home Medications and Allergies Home Medications Medication Instructions Recorded Confirmed Type aspirin 81 mg tablet 81 mg PO DAILY 01/24/21 12/14/22 History atorvastatin 10 mg tablet (Lipitor) 10 mg PO DAILY 01/24/21 12/14/22 History baclofen 10 mg tablet 10 mg PO TID 01/24/21 12/14/22 History carvedilol 25 mg tablet (Coreg) 25 mg PO BID 01/24/21 12/14/22 History cholecalciferol (vitamin D3) 10 10 mcg PO DAILY 01/24/21 12/14/22 History mcg (400 unit) tablet docusate sodium 100 mg capsule 100 mg PO BID 01/24/21 12/14/22 Hist
[2022-12-14] MEDS: DOXYCYCLINE 100 MG/NS 100 ML 100 MG/100 ML BAG IVPB ×2 (02:07→13:50)
--- NOTE | 2022-12-14 04:27 | ADMGEN ---
This patient, Ignacia Connelly, was admitted to IMU Room 232-01. Patient/family oriented to hospital policies and general routines including ID bracelet, bed and alarms, visiting hours, pain management, procedures, bathroom and other care routines, personal items, smoking policy, room service/diet, and visiting hours. Information on how to activate the Rapid Response Team has been discussed. Patient/Family are encouraged to report perceived risks to care and to ask questions if they do not understand what they are told or what they should do.
--- NOTE | 2022-12-14 04:43 | PC.NURSE ---
Called Brother and POA to review admit information and confirm POA status. Michael confirms he is healthcare POA and Vianney is his . Michael states he can answer admit questions later in the day when he comes up.
[2022-12-14 05:49] LABS: Troponin I 0.015 ng/mL (0.000-0.034)
[2022-12-14] MEDS: SODIUM CHLORIDE 0.9% IV 1,000 ML 150 ML IV CONT ×2 (06:42→13:13)
[2022-12-14 09:23] LABS: Basophils Absolute Auto 0.1 K/mm3 (0.0-0.1); Basophils Percent Auto 0.3 % (0.2-1.2); Hematocrit 42.1 % (42.0-52.0); Hemoglobin 12.9 g/dL (14.0-18.0); Immature Granulocyte Absolute 0.14 K/mm3 (0.00-0.031); Immature Granulocyte Percent A 0.7 % (0-0.5); Lymphocytes Absolute Auto 0.67 K/mm3 (0.9-3.2); Lymphocytes Percent Auto 3.2 % (18.3-44.2); Mean Corpuscular HGB Conc 30.6 g/dl (32-36); Mean Corpuscular Hemoglobin 30.9 pg (26-34); Mean Platelet Volume 10.3 fl (7.4-10.4); Monocytes Absolute Auto 1.4 K/mm3 (0.1-0.6); Monocytes Percent Auto 6.7 % (2.6-8.5); Neutrophils Absolute Auto 18.5 K/mm3 (1.3-6.7); Neutrophils Percent Auto 89.1 % (45.5-73.1); Platelet Count Result 236 k/mm3 (150-375); Red Blood Count 4.17 M/mm3 (4.6-6.20); Red Cell Distribution Width 14.7 % (11.5-14.5); White Blood Count 20.8 K/mm3 (4.5-10.0)
[2022-12-14 09:28] LABS: Anion Gap 5 mmol/L (8-16); Blood Urea Nitrogen 21 mg/dL (9-20); Calcium 8.9 mg/dL (8.4-10.2); Carbon Dioxide 29 mmol/L (22-30); Chloride 107 mmol/L (98-107); Estimated CRCL calculation 66 ml/min; Estimated Glomerular Filt Rate > 60; Glucose 128 mg/dL (65-110); Potassium 4.2 mmol/L (3.4-5.0); Sodium 141 mmol/L (137-145)
--- NOTE | 2022-12-14 10:21 | PM.IMPN ---
Progress Note: A&P Assessment and Plan (1) Sepsis: Code(s): A41.9 - Sepsis, unspecified organism Status: Acute (2) Pneumonia: Code(s): J18.9 - Pneumonia, unspecified organism Status: Acute (3) Acute metabolic encephalopathy: Code(s): G93.41 - Metabolic encephalopathy Status: Acute (4) Hypertension: Code(s): I10 - Essential (primary) hypertension Status: Chronic (5) Obesity: Code(s): E66.9 - Obesity, unspecified Status: Acute Plan IV fluid resuscitation Monitor lactic acid levels Repeat CBC CMP WBCs 18.0 Albuterol Nebulizer Two sets of Blood cultures pending CTA left lower lobe Pneumonia Monitor albumin' Monitoring of mental status. Steroids suggested if septic shock on his positive fluid resuscitation and vasopressors. IV antibiotics some Rocephin, doxycycline Altered mental status Not clear the patient's baseline. Will continue [place] Abnormal CT findings of the right ventricle shunt which was placed secondary to aneurysm. Would get neurosurgical consult spoke to in detail he will follow the patient. May need a repeat CT/MRI. Limit use of tranquilizers and mood stabilizers Blood pressure well controlled. Continue carvedilol, atorvastatin, aspirin, hydralazine, olmesartan Subjective Date/time seen: 12/14/22 10:21 Interval history: Patient seen today with confusion difficulty arousability he got a dose of Haldol and Ativan overnight. Most history obtained from the patient's family via a telephone communication Exam Narrative: GENERAL: Well appearing, well-nourished, non-toxic, in no acute distress. HEAD: Normocephalic, atraumatic. NECK: Supple. No adenopathy, no masses. RESPIRATORY: Airway patent, respirations nonlabored. Clear to auscultation bilaterally, no rales, rhonchi, wheezing. CARDIOVASCULAR: Regular rate and rhythm without murmurs, rubs, or gallops. Peripheral pulses 2+ and equal bilaterally. ABDOMINAL: Soft, nontender, nondistended, no hepatosplenomegaly. Normoactive BS. MUSCULOSKELETAL: no Epigastric and no hypochondrial tenderness SKIN: Warm, dry, normal color. No rashes. NEURO: A&O 2 Objective Data Vital Signs Vital Signs: Vital Signs - 24 hr 12/13/22 21:59 12/13/22 22:06 12/13/22 23:25 Temperature 39.4 C H Pulse Rate 132 H Respiratory Rate 27 H Blood Pressure 152/92 H Pulse Oximetry 90 93 95 Oxygen Delivery Nasal Cannula Nasal Cannula Nasal Cannula Oxygen Flow Rate 2 4 4 Fraction of Inspired Oxygen 36 12/13/22 23:00 12/13/22 22:21 12/13/22 22:42 Temperature 38.6 C H Pulse Rate 133 H 115 H Respiratory Rate 27 H 27 H Blood Pressure Pulse Oximetry 95 Oxygen Delivery Oxygen Flow Rate Fraction of Inspired Oxygen 12/13/22 22:45 12/13/22 23:02 12/13/22 23:15 Temperature Pulse Rate 128 H 122 H 122 H Respiratory Rate 24 H 17 22 H Blood Pressure Pulse Oximetry 95 Oxygen Delivery Oxygen Flow Rate Fraction of Inspired Oxygen 12/13/22 23:30 12/13/22 23:43 12/13/22 23:45 Temperature Pulse Rate 128 H 114 H Respiratory Rate 17 30 H Blood Pressure 155/78 H Pulse Oximetry 93 Oxygen Delivery Oxygen Flow Rate Fraction of Inspired Oxygen 12/14/22 00:00 12/14/22 00:17 12/14/22 03:52 Temperature 37.4 C Pulse Rate 124 H 74 Respiratory Rate 25 H 23 H 15 Blood Pressure 134/78 Pulse Oximetry 96 Oxygen Delivery Oxygen Flow Rate Fraction of Inspired Oxygen 12/14/22 05:18 12/14/22 06:00 12/14/22 05:00 Temperature 36.2 C L Pulse Rate 116 H 113 H Respiratory Rate 20 Blood Pressure 143/72 H Pulse Oximetry 97 96 Oxygen Delivery Nasal Cannula Oxygen Flow Rate 3 Fraction of Inspired Oxygen Intake/Output Intake/Output: Intake & Output 12/11/22 12/12/22 12/13/22 12/14/22 23:59 23:59 23:59 23:59 Intake Total 1100 1150 Balance 1100 1150 Meds/Results Medications: Active
[2022-12-14] MEDS: levETIRAcetam 500 MG TABLET 1000 MG PO ×2 (12:00→21:11)
[2022-12-14] MEDS: CHOLECALCIFEROL 400 UNITS TABLET (VIT D) PO (12:44)
[2022-12-14] MEDS: TAMSULOSIN HCL 0.4 MG CAPSULE PO (12:44)
[2022-12-14] MEDS: MULTIVITAMINS /C LUTEIN (CENTRUM SILVER) TABLET *BKC 1 TAB PO (12:44)
[2022-12-14] MEDS: ESCITALOPRAM OXALATE 10 MG TABLET PO (12:45)
[2022-12-14] MEDS: carvediloL 25 MG TABLET PO ×2 (12:45→16:12)
[2022-12-14] MEDS: ASPIRIN 81 MG ENTERIC TABLET PO (12:45)
[2022-12-14] MEDS: ATORVASTATIN 10 MG TABLET PO (12:45)
[2022-12-14] MEDS: polyethylene glycoL 3350 17 GM POWD.PACK PO (12:51)
[2022-12-14] MEDS: OLMESARTAN MEDOXOMIL 20 MG TABLET 40 MG PO (12:51)
[2022-12-14] MEDS: ALBUTEROL SULFATE NEB 2.5 MG/3 ML INH 5 MG INHALATION ×2 (14:34→20:09)
[2022-12-14] MEDS: IPRATROPIUM BR 0.02% INH SOLN 0.5 MG/2.5 ML VIAL INHALATION ×2 (14:35→20:08)
--- NOTE | 2022-12-14 19:42 | WPDNEUROSGCN ---
Assessment and Plan Assessment and plan (1) Acute metabolic encephalopathy: Code(s): G93.41 - Metabolic encephalopathy Status: Acute Plan confusion, lethargy; h/o HARVESTING SUPERVISOR shunt At this time, I don't think the patient has a shunt infection. His lethargy may be related to a combination of recent haldol, susceptibility from previous brain injury, systemic infection, hypoxia or CO2 retention. His WBC is very high. I will monitor him neurologically. If greater concern for shunt-related failure, will repeat imaging or tap shunt. THe size of his ventricles on CT appear smaller than previous. May need to change the performance level if does not lcinically improve. 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 BPH (benign prostatic hyperplasia) Cerebral aneurysm Chronic subdural hematoma COPD (chronic obstructive pulmonary disease) Glaucoma Hyperlipidemia Hypertension Seizure disorder Vitamin D deficiency Surgical History Surgical History (Updated 12/14/22 @ 09:10 by Myranda Ramsay DO) History of tracheostomy (~2013) S/P coil embolization of cerebral aneurysm (~2013) Middle cerebral artery aneurysm HARVESTING SUPERVISOR (ventriculoperitoneal) shunt status Family History Family History Unknown Unknown family medical history Social History Social History (Updated 12/14/22 @ 09:20 by Myranda Ramsay DO) Social History: He is and lives in assisted living. He had 2 children. 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 He quit smoking in 2013. His family reports the ever drink alcohol. Code status: Full code Healthcare power of trust and estates attorney: Michael Murray (brother) Smoking status: Former smoker Alcohol intake: current Substance use: never Gender identity (if verbalized by the patient): Male Spiritual care concerns: No Meds Home Medications and Allergies Home Medications Medication Instructions Recorded Confirmed Type aspirin 81 mg tablet 81 mg PO DAILY 01/24/21 12/14/22 History atorvastatin 10 mg tablet (Lipitor) 10 mg PO DAILY 01/24/21 12/14/22 History baclofen 10 mg tablet 10 mg PO TID 01/24/21 12/14/22 History carvedilol 25 mg tablet (Coreg) 25 mg PO BID 01/24/21 12/14/22 History cholecalciferol (vitamin D3) 10 10 mcg PO DAILY 01/24/21 12/14/22 History mcg (400 unit) tablet docusate sodium 100 mg capsule 100 mg PO BID 01/24/21 12/14/22 History (Colace) escitalopram oxalate 10 mg tablet 10 mg PO DAILY 01/24/21 12/14/22 History (Lexapro) hydralazine 50 mg tablet 50 mg PO TID 01/24/21 12/14/22 History levetiracetam 1,000 mg tablet 1,000 mg PO BID 01/24/21 12/14/22 History (Keppra) multivit with minerals-iron 18 1 tablet PO DAILY 01/24/21 12/14/22 History mg-folic ac 400 mcg-vit K 25 mcg tablet (Adults Multivitamin) olmesartan 40 mg tablet (Benicar) 40 mg PO DAILY 01/24/21 12/14/22 History polyethylene glycol 3350 17 gram 17 g PO DAILY 01/24/21 12/14/22 History oral powder packet (Miralax) tamsulosin 0.4 mg capsule (Flomax) 0.4 mg PO DAILY 01/24/21 12/14/22 History turmeric root extract 2 cap PO DAILY 01/24/21 12/14/22 History umeclidinium 62.5 mcg-vilanterol 1 inh inhalation DAILY 01/24/21 12/14/22 History 25 mcg/actuation powdr for inhalation (Anoro Ellipta) acetaminophen 500 mg tablet 500 mg PO Q6H PRN Fever Or Pain 02/11/21 12/14/22 History (Acetaminophen Extra Strength) brimonidine 0.1 % eye drops 1 drp RIGHT EYE BID 02/11/21 12/14/22 History (Alphagan P) Allergies Allergy/AdvReac Type Severity Reaction Status Date / Time No Known Allergies Allergy Unverified 04/22/19 13:32 Vital Signs Vital Signs - 24 hr 12/13/22 21:59 12/13/22 22:06 12/13/22 23:25 Temperature 39.4 C H Pulse Rate 132 H Respiratory Rate 27 H Blood Pressure 152/92 H Pulse Oxi
[2022-12-14] MEDS: cefTRIAXone 1 GM in SODIUM CHLORIDE 0.9% IV 100 ML 200 ML IVPB (21:09)
[2022-12-14] MEDS: BRIMONIDINE TARTRATE 0.1% 5 ML OPHTH DROPS 1 DROP RIGHT EYE (21:23)
[2022-12-15] VITALS (22 sets, daily range): BP systolic 110–142; BP diastolic 67–84; PULSE 67–102; RESP 18–28; TEMP 36.3–36.8; O2SAT 92–100
[2022-12-15] MEDS: DOXYCYCLINE 100 MG/NS 100 ML 100 MG/100 ML BAG IVPB ×2 (01:51→13:22)
[2022-12-15 04:41] LABS: Basophils Percent Auto 0.4 % (0.2-1.2); Eosinophils Absolute Auto 0.2 K/mm3 (0-0.3); Eosinophils Percent Auto 1.5 % (0-4.4); Hematocrit 36.6 % (42.0-52.0); Hemoglobin 11.2 g/dL (14.0-18.0); Immature Granulocyte Absolute 0.05 K/mm3 (0.00-0.031); Immature Granulocyte Percent A 0.5 % (0-0.5); Lymphocytes Absolute Auto 0.91 K/mm3 (0.9-3.2); Lymphocytes Percent Auto 8.6 % (18.3-44.2); Mean Corpuscular HGB Conc 30.6 g/dl (32-36); Mean Corpuscular Hemoglobin 30.7 pg (26-34); Mean Corpuscular Volume 100.3 fl (80-100); Mean Platelet Volume 10.2 fl (7.4-10.4); Monocytes Absolute Auto 1.2 K/mm3 (0.1-0.6); Monocytes Percent Auto 11.1 % (2.6-8.5); Neutrophils Absolute Auto 8.2 K/mm3 (1.3-6.7); Neutrophils Percent Auto 77.9 % (45.5-73.1); Platelet Count Result 171 k/mm3 (150-375); Red Blood Count 3.65 M/mm3 (4.6-6.20); Red Cell Distribution Width 14.8 % (11.5-14.5); White Blood Count 10.5 K/mm3 (4.5-10.0)
[2022-12-15] MEDS: SODIUM CHLORIDE 0.9% IV 1,000 ML 75 ML IV CONT ×2 (04:47→22:40)
[2022-12-15 04:48] LABS: Anion Gap 3 mmol/L (8-16); Blood Urea Nitrogen 16 mg/dL (9-20); Calcium 7.9 mg/dL (8.4-10.2); Carbon Dioxide 28 mmol/L (22-30); Chloride 110 mmol/L (98-107); Estimated CRCL calculation 84 ml/min; Estimated Glomerular Filt Rate > 60; Glucose 90 mg/dL (65-110); Potassium 3.9 mmol/L (3.4-5.0); Sodium 141 mmol/L (137-145)
--- NOTE | 2022-12-15 06:50 | PC.NURSE ---
Patients IV came out. 4 attempts made to insert a new one by 2 nurses, unsuccessful. Will put in a consult for our vascular access nurse.
[2022-12-15] MEDS: OLMESARTAN MEDOXOMIL 20 MG TABLET 40 MG PO (08:22)
[2022-12-15] MEDS: BRIMONIDINE TARTRATE 0.1% 5 ML OPHTH DROPS 1 DROP RIGHT EYE ×2 (08:22→21:05)
[2022-12-15] MEDS: DOCUSATE SODIUM 100 MG CAPSULE PO ×2 (08:22→17:16)
[2022-12-15] MEDS: hydrALAZINE HCL 50 MG TABLET PO ×2 (08:22→17:17)
[2022-12-15] MEDS: ESCITALOPRAM OXALATE 10 MG TABLET PO (08:22)
[2022-12-15] MEDS: polyethylene glycoL 3350 17 GM POWD.PACK PO (08:22)
[2022-12-15] MEDS: carvediloL 25 MG TABLET PO ×2 (08:23→17:16)
[2022-12-15] MEDS: ATORVASTATIN 10 MG TABLET PO (08:23)
[2022-12-15] MEDS: CHOLECALCIFEROL 400 UNITS TABLET (VIT D) PO (08:24)
[2022-12-15] MEDS: levETIRAcetam 500 MG TABLET 1000 MG PO ×2 (08:24→20:38)
[2022-12-15] MEDS: MULTIVITAMINS /C LUTEIN (CENTRUM SILVER) TABLET *BKC 1 TAB PO (08:24)
[2022-12-15] MEDS: ASPIRIN 81 MG ENTERIC TABLET PO (08:24)
[2022-12-15] MEDS: TAMSULOSIN HCL 0.4 MG CAPSULE PO (08:25)
[2022-12-15] MEDS: ALBUTEROL SULFATE NEB 2.5 MG/3 ML INH 5 MG INHALATION ×3 (08:41→20:38)
[2022-12-15] MEDS: IPRATROPIUM BR 0.02% INH SOLN 0.5 MG/2.5 ML VIAL INHALATION ×3 (08:42→20:38)
--- NOTE | 2022-12-15 16:18 | PM.IMPN ---
Progress Note: A&P Assessment and Plan (1) Acute respiratory failure with hypoxia: Code(s): J96.01 - Acute respiratory failure with hypoxia Status: Acute (2) Acute metabolic encephalopathy: Code(s): G93.41 - Metabolic encephalopathy Status: Acute (3) Pneumonia: Qualifiers: Laterality: left Lung location: lower lobe of lung Pneumonia type: due to unspecified organism Qualified Code(s): J18.9 - Pneumonia, unspecified organism Code(s): J18.9 - Pneumonia, unspecified organism Status: Resolved (4) Sepsis: Qualifiers: Sepsis type: sepsis due to unspecified organism Sepsis acute organ dysfunction status: with acute organ dysfunction Severe sepsis acute organ dysfunction type: encephalopathy Code(s): A41.9 - Sepsis, unspecified organism Status: Acute (5) Witnessed episode of apnea: Code(s): R06.81 - Apnea, not elsewhere classified Status: Acute (6) Short-term memory loss: Code(s): R41.3 - Other amnesia Status: Acute (7) Acute and chronic respiratory failure with hypoxia: Code(s): J96.21 - Acute and chronic respiratory failure with hypoxia Status: Acute Plan The patient has sepsis likely due to pneumonia given pulmonary opacities on CT scan chest in the setting of fever, tachycardia, tachypnea and metabolic encephalopathy resulting in acute on chronic hypoxic respiratory failure. The patient has been placed on antibiotic therapy with Rocephin and doxycycline. Will continue scheduled nebulizer treatments. Patient does have short-term memory loss likely due to a combination of his history of subarachnoid hemorrhage and likely developing some dementia. Neurosurgery suggests no shunt infection The patient does have chronic subdural hematomas. Chronic lymphedema Pt needs wrapping of left leg with pad and kerlex Subjective Date/time seen: 12/15/22 16:18 Interval history: Patient admitted with confusion and low oxygen saturation. 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 Pt seen by neurosurgery here they feel the shunt is unlikely to be infected. Long discussion with sister who tells me pt has chronic lymphedema sees wound nurse from [place] [facility]. Pt needs wound care consult and wrapping with pansement superabsorbent pad and kerlex. Review of Systems Review of Systems: Pt pleasantly confused Exam Narrative: GENERAL: Well appearing, well-nourished RESPIRATORY: Airway patent, respirations nonlabored. Clear to auscultation bilaterally, no rales, rhonchi, wheezing. CARDIOVASCULAR: Regular rate and rhythm without murmurs, rubs, or gallops. Peripheral pulses 2+ and equal bilaterally. ABDOMINAL: Soft, nontender, nondistended, no hepatosplenomegaly. Normoactive BS. MUSCULOSKELETAL: no Epigastric and no hypochondrial tenderness SKIN: Warm, dry, normal color. No rashes. NEURO: pleasantly confused left leg: lymphedema with blisters weeping out Const: General: confusion Orientation/consciousness: confusion Skin: Other: No jaundice, warm to touch, diaphoretic Neuro: General: tone normal and confusion Extrem: Other: No clubbing, no cyanosis, no pitting edema Psych: Speech and movement: Psychomotor agitation in speech present and Restless speech present Objective Data Vital Signs Vital Signs: Vital Signs - 24 hr 12/14/22 18:52 12/14/22 18:00 12/14/22 20:43 Temperature 36.6 C Pulse Rate 96 58 L Respiratory Rate 18 Blood Pressure 108/81 122/77 Pulse Oximetry 98 Oxygen Delivery Oxygen Flow Rate 12/14/22 20:38 12/14/22 20:00 12/14/22 20:00 Temperature Pulse Rate 92 95 Respiratory Rate 16 Blood Pre
--- NOTE | 2022-12-15 20:13 | WPDNEUROSGPN ---
Progress Note: A&P Assessment and Plan (1) Acute metabolic encephalopathy: Code(s): G93.41 - Metabolic encephalopathy Status: Acute Assessment and Plan: Mental status has improved since yesterday. WBC also improved. I do not feel he needs adjustment of his BLUEPRINT DUPLICATOR shunt or a shunt tap. Plan: - no neurosurgical intervention at this time - no follow-up necessary with me - signing off. Reconsult Neurosurgery if further concerns. Subjective Date/time seen: 12/15/22 20:13 Interval history: patient more lucid today. ABle to converse more and follow commands. No headaches. Exam Narrative: General: comfortable in bed Mental: [id number]. Speech more brisk and coherent. Knows he is at [facility] and recalls meeting me yesterday. Can name objects in the room and knows he is watching [employer] and can name the host. Objective Data Vital Signs Vital Signs: Vital Signs - 24 hr 12/14/22 20:43 12/14/22 20:38 12/14/22 22:00 Temperature 36.6 C Pulse Rate 58 L 92 91 Respiratory Rate 18 16 Blood Pressure 122/77 Pulse Oximetry 98 Oxygen Delivery Oxygen Flow Rate 12/14/22 23:52 12/15/22 00:00 12/15/22 00:00 Temperature 36.7 C Pulse Rate 92 85 Respiratory Rate 20 Blood Pressure 145/70 H Pulse Oximetry 99 99 Oxygen Delivery Nasal Cannula Oxygen Flow Rate 3 12/15/22 02:00 12/15/22 04:00 12/15/22 04:00 Temperature 36.6 C Pulse Rate 91 84 85 Respiratory Rate 18 Blood Pressure 130/72 Pulse Oximetry 100 Oxygen Delivery Oxygen Flow Rate 12/15/22 04:00 12/15/22 06:00 12/15/22 08:23 Temperature Pulse Rate 89 93 Respiratory Rate Blood Pressure Pulse Oximetry 100 Oxygen Delivery Nasal Cannula Oxygen Flow Rate 3 12/15/22 08:42 12/15/22 08:42 12/15/22 08:00 Temperature 36.3 C L Pulse Rate 95 95 93 Respiratory Rate 18 28 H Blood Pressure 110/67 Pulse Oximetry 95 97 Oxygen Delivery Nasal Cannula Oxygen Flow Rate 3 12/15/22 08:00 12/15/22 10:00 12/15/22 12:00 Temperature 36.6 C Pulse Rate 92 102 H 67 Respiratory Rate 20 Blood Pressure 129/74 Pulse Oximetry 92 Oxygen Delivery Oxygen Flow Rate 12/15/22 14:39 12/15/22 09:00 12/15/22 12:00 Temperature Pulse Rate 92 90 Respiratory Rate 18 20 Blood Pressure Pulse Oximetry 99 Oxygen Delivery Nasal Cannula Oxygen Flow Rate 3 12/15/22 14:51 12/15/22 14:00 12/15/22 16:00 Temperature Pulse Rate 92 92 Respiratory Rate 18 Blood Pressure Pulse Oximetry 99 Oxygen Delivery Nasal Cannula Oxygen Flow Rate 3 12/15/22 16:00 12/15/22 17:16 12/15/22 16:00 Temperature 36.4 C Pulse Rate 87 92 95 Respiratory Rate 24 H Blood Pressure 142/84 H Pulse Oximetry 95 Oxygen Delivery Oxygen Flow Rate 12/15/22 18:00 Temperature Pulse Rate 101 H Respiratory Rate Blood Pressure Pulse Oximetry Oxygen Delivery Oxygen Flow Rate Intake/Output Intake/Output: Intake & Output 12/12/22 12/13/22 12/14/22 12/15/22 23:59 23:59 23:59 23:59 Intake Total 1100 2690 3160 Output Total 600 800 Balance 1100 2090 2360 Meds/Results Medications: Active Medications Generic Name Dose Route Start Last Admin Trade Name Freq PRN Reason Stop Dose Admin Acetaminophen 650 mg 12/15/22 17:05 Acetaminophen 325 Mg Tablet PO Q8HR PRN Mild Pain (1-3) or Fever Albuterol 5 mg 12/14/22 08:00 12/15/22 14:38 Albuterol Sulfate Neb 2.5 Mg/3 Ml Inh INHALATION 5 mg Q6HRT [facility] Administration Aspirin 81 mg 12/14/22 09:00 12/15/22 08:24 Aspirin 81 Mg Enteric Tablet PO 01/14/23 08:59 81 mg DAILY [facility] Administration Atorvastatin Calcium 10 mg 12/14/22 09:00 12/15/22 08:23 Atorvastatin 10 Mg Tablet PO 10 mg DAILY [facility] Administration Baclofen 10 mg 12/14/22 09:00 12/14/22 09:00 Baclofen 10 Mg Tablet PO Not Given TID [facility] Brimonidine Tartrate 1 drop 12/14/22 09:
[2022-12-15] MEDS: ACETAMINOPHEN 325 MG TABLET 650 MG PO (20:39)
[2022-12-15] MEDS: cefTRIAXone 1 GM in SODIUM CHLORIDE 0.9% IV 100 ML 200 ML IVPB (20:54)
[2022-12-16] VITALS (23 sets, daily range): BP systolic 125–149; BP diastolic 63–93; PULSE 79–108; RESP 18–22; TEMP 36.4–36.9; O2SAT 92–100
[2022-12-16] MEDS: DOXYCYCLINE 100 MG/NS 100 ML 100 MG/100 ML BAG IVPB ×2 (02:26→13:53)
[2022-12-16] MEDS: ALBUTEROL SULFATE NEB 2.5 MG/3 ML INH 5 MG INHALATION ×4 (02:51→20:51)
[2022-12-16] MEDS: IPRATROPIUM BR 0.02% INH SOLN 0.5 MG/2.5 ML VIAL INHALATION ×4 (02:52→20:51)
[2022-12-16] MEDS: levETIRAcetam 500 MG TABLET 1000 MG PO (08:57)
[2022-12-16] MEDS: BRIMONIDINE TARTRATE 0.1% 5 ML OPHTH DROPS 1 DROP RIGHT EYE ×2 (08:57→22:12)
[2022-12-16] MEDS: TAMSULOSIN HCL 0.4 MG CAPSULE PO (08:58)
[2022-12-16] MEDS: ATORVASTATIN 10 MG TABLET PO (08:58)
[2022-12-16] MEDS: OLMESARTAN MEDOXOMIL 20 MG TABLET 40 MG PO (08:58)
[2022-12-16] MEDS: DOCUSATE SODIUM 100 MG CAPSULE PO (08:58)
[2022-12-16] MEDS: ASPIRIN 81 MG ENTERIC TABLET PO (08:58)
[2022-12-16] MEDS: polyethylene glycoL 3350 17 GM POWD.PACK PO (08:58)
[2022-12-16] MEDS: hydrALAZINE HCL 50 MG TABLET PO (08:58)
[2022-12-16] MEDS: ESCITALOPRAM OXALATE 10 MG TABLET PO (08:58)
[2022-12-16] MEDS: MULTIVITAMINS /C LUTEIN (CENTRUM SILVER) TABLET *BKC 1 TAB PO (08:58)
[2022-12-16] MEDS: CHOLECALCIFEROL 400 UNITS TABLET (VIT D) PO (08:59)
[2022-12-16] MEDS: ENOXAPARIN 40 MG/0.4 ML SYRINGE SUB-Q (08:59)
[2022-12-16] MEDS: UMECLIDINIUM/VILANTEROL 62.5-25 MCG ELLIPTA 1 PUFF INHALATION (09:13)
[2022-12-16 10:27] LABS: Levetiracetam Keppra 20.6 mcg/mL (6.0-46.0)
[2022-12-16] MEDS: carvediloL 25 MG TABLET PO (10:54)
[2022-12-16] MEDS: ACETAMINOPHEN 325 MG TABLET 650 MG PO (10:57)
--- NOTE | 2022-12-16 11:45 | PC.NURSE ---
Patient is becoming more confused and combative. Pt disoriented to place and time. Attempting to crawl out of bed. Patient direct care staffer at bedside for safety. Physician was notified. Orders to continue to reorient patient and use restraints if needed.
--- NOTE | 2022-12-16 12:55 | PC.NURSE ---
Patient remains confused and disoriented. Patient is becoming increasingly more aggressive and does not redirect. Multiple staff members at bedside to keep patient in bed for safety. Physician was notified and orders received for IVP ativan for agitation.
[2022-12-16] MEDS: LORazepam INJ (*CRX) 2 MG/ML VIAL 0.5 MG IV PUSH ×2 (13:04→13:59)
--- NOTE | 2022-12-16 13:30 | PC.NURSE ---
Patient remains combative and disoriented and still attempting to climb out of bed. Visual and auditory hallucinations noted. Audible wheezing and respiratory distress is noted. Patient is tachypneic. Physician notified regarding current assessment. Orders received for Haldol 5 mg IM.
[2022-12-16] MEDS: HALOPERIDOL LACTATE 5 MG/ML VIAL IM (13:42)
--- NOTE | 2022-12-16 14:25 | PC.NURSE ---
Patient remains combative and delirious. Multiple staff members at bedside to assist with care. Respirations and HR are elevated. 2 doses of ativan and 1 dose of haldol have not improved patient's condition. Physician requested to bedside. Orders received for more ativan IVP at this time.
[2022-12-16] MEDS: LORazepam INJ (*CRX) 2 MG/ML VIAL 1 MG IV PUSH (14:33)
--- NOTE | 2022-12-16 14:55 | PM.IMPN ---
Progress Note: A&P Assessment and Plan (1) Acute respiratory failure with hypoxia: Code(s): J96.01 - Acute respiratory failure with hypoxia Status: Acute Assessment and Plan: See below (2) Acute metabolic encephalopathy: Code(s): G93.41 - Metabolic encephalopathy Status: Acute (3) Pneumonia: Qualifiers: Laterality: left Lung location: lower lobe of lung Pneumonia type: due to unspecified organism Qualified Code(s): J18.9 - Pneumonia, unspecified organism Code(s): J18.9 - Pneumonia, unspecified organism Status: Resolved (4) Sepsis: Qualifiers: Sepsis type: sepsis due to unspecified organism Sepsis acute organ dysfunction status: with acute organ dysfunction Severe sepsis acute organ dysfunction type: encephalopathy Code(s): A41.9 - Sepsis, unspecified organism Status: Acute (5) Witnessed episode of apnea: Code(s): R06.81 - Apnea, not elsewhere classified Status: Acute (6) Short-term memory loss: Code(s): R41.3 - Other amnesia Status: Acute (7) Acute and chronic respiratory failure with hypoxia: Code(s): J96.21 - Acute and chronic respiratory failure with hypoxia Status: Acute Plan The patient has sepsis likely due to pneumonia given pulmonary opacities on CT scan chest in the setting of fever, tachycardia, tachypnea and metabolic encephalopathy resulting in acute on chronic hypoxic respiratory failure. The patient has been placed on antibiotic therapy with Rocephin IV and doxycycline IV . Pt is on scheduled nebulizer treatments. pt is on 3 liters of oxygen Patient does have short-term memory loss likely due to a combination of his history of subarachnoid hemorrhage and likely developing some dementia. Neurosurgery suggests no shunt infection The patient does have chronic subdural hematomas. Chronic lymphedema Pt needs wrapping of left leg with pad and kerlex Acute agitation and anxiety Pt had to be placed in restraints Pt had haldol 5mg im pt had Ativan iv await clinical improvement Subjective Date/time seen: 12/16/22 14:55 Interval history: Patient admitted with confusion and low oxygen saturation. Pt has history of chronic hypoxic respiratory failure, morbid obesity, short-term memory loss (mild dementia), intercerebral aneurysm, MANAGER CONVENTION shunt, state and COPD who presented to the ER via EMS from [facility] due to shortness of breath.?Pt has been having low grade fevers and confusion. Pt seen by neurosurgery here they feel the shunt is unlikely to be infected. Long discussion with sister who tells me pt has chronic lymphedema sees [facility] from [facility]. Pt needs wound care consult and wrapping with pansement superabsorbent pad and kerlex. Unfortunately today pt is very agitated and restless wants to be discharged pt has a history of dementia explained to him that he is here for iv abx for pneumonia and cellulitic leg Review of Systems Review of Systems: Dementia and Agitation Exam Narrative: GENERAL: Pt is agitated and very anxious today RESPIRATORY: Clear to auscultation bilaterally, no rales, rhonchi, wheezing. CARDIOVASCULAR: Regular rate and rhythm without murmurs, rubs, or gallops. Peripheral pulses 2+ and equal bilaterally. ABDOMINAL: Soft, nontender, nondistended, no hepatosplenomegaly. Normoactive BS. MUSCULOSKELETAL: no Epigastric and no hypochondrial tenderness SKIN: Warm, dry, normal color. No rashes. NEURO: Pleasantly confused left leg: Lymphedema with blisters weeping out Objective Data Vital Signs Vital Signs: Vital Signs - 24 hr 12/15/22 16:00 12/15/22 16:00 12/15/22 17:16 Temperature 36.4 C Pulse Rate 87 92 Respiratory Rate 24 H Blood Pressure 142/84 H Pulse Oximetry 99 95 Oxygen Delivery Nasal Cannula Oxygen Flow Rate 3 12/15/22 16:00 12/15/22 18:00 12/15/22 20:00 Temperature 36.6 C Pu
--- NOTE | 2022-12-16 16:00 | PC.NURSE ---
Patient remained more calm for one hour with intermittent hallucinations. Snoring respirations were noted. Patient still appeared to have distress. Patient woke up and appears cyanotic and short of breath. He is still confused and attempting to climb out of bed. Physician was notified and orders received for stat ABG and Chest Xray.
[2022-12-16 16:40] LABS: Alveolar/Arterial O2 Gradient 79.4 mmHg; Base Excess ABG -0.9 mEq/l (+/-2.0); Fractional Inspired Oxygen 28 %; HCO3 ABG 25.4 mEq/l (22.0-26.0); Oxygen Content ABG 15.1 %vol (16.0-22.0); Oxygen Saturation ABG 90.2 % (95.0-100.0); Oxyhemoglobin 89.6 % THb (90.0-100.0); PO2 ABG 62.4 mmHg (80.0-100.0); PO2 FiO2 Ratio Arterial Blood 2.23 %; pH ABG 7.333 (7.350-7.450)
[2022-12-16 16:45] LABS: Device NASAL CANNULA; Site Drawn RIGHT RADIAL
--- NOTE | 2022-12-16 16:50 | PC.NURSE ---
Physician at bedside to assess patient. Patient is delirious, hallucinating and attempting to climb out of bed. Staff is unable to redirect patient. Restraints were placed on patient to keep from pulling equipment including NC o2. O2 increase due to low Po2 result in ABG. Physician wanted more IV ativan but this RN voiced concern for his respiratory status. He was already having snoring respirations when asleep. Orders for zyprexa IM received.
[2022-12-16] MEDS: OLANZapine 10 MG INJ VIAL 5 MG IM (17:07)
[2022-12-16] MEDS: levETIRAcetam 1000MG/NACL100ML 1,000 MG/100 ML BAG 400 MG IVPB (21:43)
[2022-12-17] VITALS (22 sets, daily range): BP systolic 142–155; BP diastolic 77–87; PULSE 78–101; RESP 16–20; TEMP 36.1–36.9; O2SAT 94–99
[2022-12-17] MEDS: OLANZapine 10 MG INJ VIAL 5 MG IM (00:03)
[2022-12-17] MEDS: SODIUM CHLORIDE 0.9% IV 1,000 ML 75 ML IV CONT (02:00)
[2022-12-17] MEDS: ALBUTEROL SULFATE NEB 2.5 MG/3 ML INH 5 MG INHALATION ×4 (02:41→21:14)
[2022-12-17] MEDS: IPRATROPIUM BR 0.02% INH SOLN 0.5 MG/2.5 ML VIAL INHALATION ×4 (02:41→21:14)
[2022-12-17] MEDS: DOXYCYCLINE 100 MG/NS 100 ML 100 MG/100 ML BAG IVPB ×2 (02:51→14:19)
--- NOTE | 2022-12-17 09:32 | PCOTNOTE ---
Attempted OT evaluation, per RN patient is still very confused and does not want out of bed at this time. Will follow.
[2022-12-17] MEDS: ASPIRIN 81 MG ENTERIC TABLET PO (09:44)
[2022-12-17] MEDS: hydrALAZINE HCL 50 MG TABLET PO ×3 (09:44→17:46)
[2022-12-17] MEDS: ATORVASTATIN 10 MG TABLET PO (09:44)
[2022-12-17] MEDS: CHOLECALCIFEROL 400 UNITS TABLET (VIT D) PO (09:44)
[2022-12-17] MEDS: carvediloL 25 MG TABLET PO ×2 (09:44→17:46)
[2022-12-17] MEDS: MULTIVITAMINS /C LUTEIN (CENTRUM SILVER) TABLET *BKC 1 TAB PO (09:44)
[2022-12-17] MEDS: ESCITALOPRAM OXALATE 10 MG TABLET PO (09:44)
[2022-12-17] MEDS: OLMESARTAN MEDOXOMIL 20 MG TABLET 40 MG PO (09:45)
[2022-12-17] MEDS: BRIMONIDINE TARTRATE 0.1% 5 ML OPHTH DROPS 1 DROP RIGHT EYE ×2 (09:56→20:32)
[2022-12-17] MEDS: levETIRAcetam 1000MG/NACL100ML 1,000 MG/100 ML BAG 400 MG IVPB ×2 (09:57→20:32)
[2022-12-17] MEDS: ENOXAPARIN 40 MG/0.4 ML SYRINGE SUB-Q (09:58)
[2022-12-17] MEDS: UMECLIDINIUM/VILANTEROL 62.5-25 MCG ELLIPTA 1 PUFF INHALATION (10:17)
--- NOTE | 2022-12-17 11:38 | PM.IMPN ---
Progress Note: A&P Assessment and Plan (1) Acute respiratory failure with hypoxia: Code(s): J96.01 - Acute respiratory failure with hypoxia Status: Acute Assessment and Plan: See below (2) Acute metabolic encephalopathy: Code(s): G93.41 - Metabolic encephalopathy Status: Acute (3) Pneumonia: Qualifiers: Laterality: left Lung location: lower lobe of lung Pneumonia type: due to unspecified organism Qualified Code(s): J18.9 - Pneumonia, unspecified organism Code(s): J18.9 - Pneumonia, unspecified organism Status: Resolved (4) Sepsis: Qualifiers: Sepsis type: sepsis due to unspecified organism Sepsis acute organ dysfunction status: with acute organ dysfunction Severe sepsis acute organ dysfunction type: encephalopathy Code(s): A41.9 - Sepsis, unspecified organism Status: Acute (5) Witnessed episode of apnea: Code(s): R06.81 - Apnea, not elsewhere classified Status: Acute (6) Short-term memory loss: Code(s): R41.3 - Other amnesia Status: Acute (7) Acute and chronic respiratory failure with hypoxia: Code(s): J96.21 - Acute and chronic respiratory failure with hypoxia Status: Acute Plan Presented with shortness of breath hypoxia fever with temperature 103? Acute encephalopathy left lower lobe pneumonia on ceftriaxone and doxycycline Sepsis Acute on chronic hypoxic respiratory failure History of dementia History of seizure disorder on Keppra History of subarachnoid hemorrhage and chronic subdural hematoma Morbid obesity Intracerebral aneurysm Status post TAILER OFF shunt placement in the past Chronic lymphedema Acute agitation and anxiety needing restraints and pharmacologic agents DVT prophylaxis Lovenox Code status full code Subjective Date/time seen: 12/17/22 11:38 Interval history: Patient admitted with confusion and low oxygen saturation. Pt has history of chronic hypoxic respiratory failure, morbid obesity, short-term memory loss (mild dementia), intercerebral aneurysm, TAILER OFF shunt, state and COPD who presented to the ER via EMS from [facility] due to shortness of breath.?Pt has been having low grade fevers and confusion. Pt seen by neurosurgery here they feel the shunt is unlikely to be infected. Long discussion with sister who tells me pt has chronic lymphedema sees [facility]. Pt needs wound care consult and wrapping with pansement superabsorbent pad and kerlex. Unfortunately today pt is very agitated and restless wants to be discharged pt has a history of dementia explained to him that he is here for iv abx for pneumonia and cellulitic leg 12/17/2022: more awake, worked with therapy. looks sob, but denies one. ate this am. Review of Systems Review of Systems: All systems reviewed & are unremarkable except as noted in HPI and below Exam Narrative: GENERAL: Pt is more calm and cooperative today RESPIRATORY diminshed breath sounds bialterally, no wheezes or rhonchi CARDIOVASCULAR: Regular rate and rhythm without murmurs, rubs, or gallops. Peripheral pulses 2+ and equal bilaterally. ABDOMINAL: Soft, nontender, nondistended, no hepatosplenomegaly. Normoactive BS. MUSCULOSKELETAL: no Epigastric and no hypochondrial tenderness SKIN: Warm, dry, normal color. No rashes. NEURO: calm, alert and oriented to palce and person, moving all extremiteis left leg: Lymphedema withace wrap in place Objective Data Vital Signs Vital Signs: Vital Signs - 24 hr 12/16/22 12:00 12/16/22 13:59 12/16/22 16:51 Temperature 98.3 F Pulse Rate 83 87 Respiratory Rate 20 18 Blood Pressure 134/79 Pulse Oximetry 98 92 Oxygen Delivery Nasal Cannula Oxygen Flow Rate 2 12/16/22 16:00 12/16/22 12:00 12/16/22 16:00 Temperature 98.4 F Pulse Rate 107 H Respiratory Rate 18 Blood Pressure 149/79 H Pulse Oximetry 100 99 94 Oxygen Delivery Nasa
[2022-12-18] VITALS (21 sets, daily range): BP systolic 104–150; BP diastolic 63–88; PULSE 78–97; RESP 16–20; TEMP 36.2–37.8; O2SAT 91–99
[2022-12-18] MEDS: DOXYCYCLINE 100 MG/NS 100 ML 100 MG/100 ML BAG IVPB ×2 (01:10→14:07)
[2022-12-18] MEDS: ONDANSETRON INJ 4 MG/2 ML VIAL IV PUSH (01:10)
[2022-12-18] MEDS: ALBUTEROL SULFATE NEB 2.5 MG/3 ML INH 5 MG INHALATION ×4 (02:14→20:14)
[2022-12-18] MEDS: IPRATROPIUM BR 0.02% INH SOLN 0.5 MG/2.5 ML VIAL INHALATION ×4 (02:14→20:14)
[2022-12-18 05:00] LABS: Basophils Percent Auto 0.3 % (0.2-1.2); Eosinophils Absolute Auto 0.2 K/mm3 (0-0.3); Hematocrit 40.7 % (42.0-52.0); Hemoglobin 12.6 g/dL (14.0-18.0); Immature Granulocyte Percent A 1.6 % (0-0.5); Lymphocytes Absolute Auto 0.81 K/mm3 (0.9-3.2); Lymphocytes Percent Auto 12.9 % (18.3-44.2); Mean Corpuscular Hemoglobin 30.9 pg (26-34); Mean Corpuscular Volume 99.8 fl (80-100); Mean Platelet Volume 9.8 fl (7.4-10.4); Monocytes Absolute Auto 0.6 K/mm3 (0.1-0.6); Monocytes Percent Auto 9.1 % (2.6-8.5); Neutrophils Absolute Auto 4.6 K/mm3 (1.3-6.7); Neutrophils Percent Auto 73.1 % (45.5-73.1); Platelet Count Result 177 k/mm3 (150-375); Red Blood Count 4.08 M/mm3 (4.6-6.20); White Blood Count 6.3 K/mm3 (4.5-10.0)
[2022-12-18 05:19] LABS: Alanine Aminotransferase 23 U/L (6-50); Albumin Level 3.3 g/dL (3.5-5.1); Alkaline Phosphatase 63 U/L (38-126); Anion Gap 3 mmol/L (8-16); Aspartate Amino Transferase 23 U/L (17-59); Bilirubin,Total 0.4 mg/dL (0.2-1.3); Blood Urea Nitrogen 8 mg/dL (9-20); Calcium 8.5 mg/dL (8.4-10.2); Carbon Dioxide 31 mmol/L (22-30); Chloride 112 mmol/L (98-107); Estimated CRCL calculation 92 ml/min; Estimated Glomerular Filt Rate > 60; Glucose 101 mg/dL (65-110); Potassium 4.3 mmol/L (3.4-5.0); Sodium 146 mmol/L (137-145)
[2022-12-18 07:35] LABS: Glucose Point of Care 100 mg/dl (65-105)
[2022-12-18] MEDS: polyethylene glycoL 3350 17 GM POWD.PACK PO (08:23)
[2022-12-18] MEDS: OLMESARTAN MEDOXOMIL 20 MG TABLET 40 MG PO (08:23)
[2022-12-18] MEDS: ASPIRIN 81 MG ENTERIC TABLET PO (08:24)
[2022-12-18] MEDS: OLANZapine 5 MG TABLET PO (08:24)
[2022-12-18] MEDS: TAMSULOSIN HCL 0.4 MG CAPSULE PO (08:24)
[2022-12-18] MEDS: MULTIVITAMINS /C LUTEIN (CENTRUM SILVER) TABLET *BKC 1 TAB PO (08:24)
[2022-12-18] MEDS: hydrALAZINE HCL 50 MG TABLET PO ×3 (08:24→16:28)
[2022-12-18] MEDS: DOCUSATE SODIUM 100 MG CAPSULE PO (08:24)
[2022-12-18] MEDS: CHOLECALCIFEROL 400 UNITS TABLET (VIT D) PO (08:25)
[2022-12-18] MEDS: BRIMONIDINE TARTRATE 0.1% 5 ML OPHTH DROPS 1 DROP RIGHT EYE ×2 (08:26→20:30)
[2022-12-18] MEDS: ATORVASTATIN 10 MG TABLET PO (08:26)
[2022-12-18] MEDS: carvediloL 25 MG TABLET PO ×2 (08:26→16:28)
[2022-12-18] MEDS: ENOXAPARIN 40 MG/0.4 ML SYRINGE SUB-Q (08:26)
[2022-12-18] MEDS: ESCITALOPRAM OXALATE 10 MG TABLET PO (08:27)
[2022-12-18] MEDS: ACETAMINOPHEN 325 MG TABLET 650 MG PO ×2 (08:40→20:30)
[2022-12-18] MEDS: UMECLIDINIUM/VILANTEROL 62.5-25 MCG ELLIPTA 1 PUFF INHALATION (08:58)
[2022-12-18] MEDS: levETIRAcetam 1000MG/NACL100ML 1,000 MG/100 ML BAG 400 MG IVPB ×2 (10:07→20:31)
--- NOTE | 2022-12-18 11:29 | PC.NURSE ---
Restraints D/C. Pt off restraints
--- NOTE | 2022-12-18 15:56 | PM.IMPN ---
Progress Note: A&P Assessment and Plan (1) Acute respiratory failure with hypoxia: Code(s): J96.01 - Acute respiratory failure with hypoxia Status: Acute Assessment and Plan: See below (2) Acute metabolic encephalopathy: Code(s): G93.41 - Metabolic encephalopathy Status: Acute (3) Pneumonia: Qualifiers: Laterality: left Lung location: lower lobe of lung Pneumonia type: due to unspecified organism Qualified Code(s): J18.9 - Pneumonia, unspecified organism Code(s): J18.9 - Pneumonia, unspecified organism Status: Resolved (4) Sepsis: Qualifiers: Sepsis type: sepsis due to unspecified organism Sepsis acute organ dysfunction status: with acute organ dysfunction Severe sepsis acute organ dysfunction type: encephalopathy Code(s): A41.9 - Sepsis, unspecified organism Status: Acute (5) Witnessed episode of apnea: Code(s): R06.81 - Apnea, not elsewhere classified Status: Acute (6) Short-term memory loss: Code(s): R41.3 - Other amnesia Status: Acute (7) Acute and chronic respiratory failure with hypoxia: Code(s): J96.21 - Acute and chronic respiratory failure with hypoxia Status: Acute Plan Presented with shortness of breath hypoxia fever with temperature 103? Acute encephalopathy left lower lobe pneumonia on ceftriaxone and doxycycline Sepsis Acute on chronic hypoxic respiratory failure on oxygen supplementation. 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 wound care consult Acute agitation and anxiety needing restraints and pharmacologic agents; he is most hypoactive delirium now. stop zyprexa and ativan DVT prophylaxis Lovenox Code status full code Subjective Date/time seen: 12/18/22 15:56 Interval history: Patient admitted with confusion and low oxygen saturation. Pt has history of chronic hypoxic respiratory failure, morbid obesity, short-term memory loss (mild dementia), intercerebral aneurysm, STOCKROOM SUPERVISOR shunt, state and COPD who presented to the ER via EMS from [facility] due to shortness of breath.?Pt has been having low grade fevers and confusion. Pt seen by neurosurgery here they feel the shunt is unlikely to be infected. Long discussion with sister who tells me pt has chronic lymphedema sees wound nurse from [facility]. Pt needs wound care consult and wrapping with pansement superabsorbent pad and kerlex. Unfortunately today pt is very agitated and restless wants to be discharged pt has a history of dementia explained to him that he is here for iv abx for pneumonia and cellulitic leg 12/17/2022: more awake, worked with therapy. looks sob, but denies one. ate this am. 12/18/2022: No overnight events. His still sleepy. Discussed with the family. he has leg swelling and redness Review of Systems Review of Systems: All systems reviewed & are unremarkable except as noted in HPI and below Exam Narrative: GENERAL: Pt is more calm and cooperative , sleepy RESPIRATORY diminshed breath sounds bialterally, no wheezes or rhonchi CARDIOVASCULAR: Regular rate and rhythm without murmurs, rubs, or gallops. Peripheral pulses 2+ and equal bilaterally. ABDOMINAL: Soft, nontender, nondistended, no hepatosplenomegaly. Normoactive BS. MUSCULOSKELETAL: no Epigastric and no hypochondrial tenderness SKIN: Warm, dry, normal color. No rashes. left leg with skin tear, reddish discoloration (hx of stasis deramtitis in the past) NEURO: calm, alert and oriented to palce and person, moving all extremiteis left leg: Lymphedema Objective Data Vital Signs Vital Signs: Vital Signs - 24 hr 12/17/22 16:00 12/17/22 16:00 12/17/22 16:00 Temperature 98.4 F Pulse Rate 88 86 Respir
[2022-12-19] VITALS (24 sets, daily range): BP systolic 121–144; BP diastolic 61–77; PULSE 71–105; RESP 16–20; TEMP 36.3–36.8; O2SAT 90–100; BMI 40.9
[2022-12-19] MEDS: IPRATROPIUM BR 0.02% INH SOLN 0.5 MG/2.5 ML VIAL INHALATION ×4 (02:16→20:40)
[2022-12-19] MEDS: ALBUTEROL SULFATE NEB 2.5 MG/3 ML INH 5 MG INHALATION ×4 (02:17→20:42)
[2022-12-19] MEDS: DOXYCYCLINE 100 MG/NS 100 ML 100 MG/100 ML BAG IVPB ×2 (02:35→13:51)
[2022-12-19] MEDS: ACETAMINOPHEN 325 MG TABLET 650 MG PO ×2 (04:30→13:25)
[2022-12-19 05:12] LABS: Basophils Percent Auto 0.5 % (0.2-1.2); Eosinophils Absolute Auto 0.2 K/mm3 (0-0.3); Eosinophils Percent Auto 3.4 % (0-4.4); Hematocrit 35.1 % (42.0-52.0); Hemoglobin 10.9 g/dL (14.0-18.0); Immature Granulocyte Absolute 0.04 K/mm3 (0.00-0.031); Immature Granulocyte Percent A 0.7 % (0-0.5); Lymphocytes Absolute Auto 1.24 K/mm3 (0.9-3.2); Lymphocytes Percent Auto 20.4 % (18.3-44.2); Mean Corpuscular HGB Conc 31.1 g/dl (32-36); Mean Corpuscular Hemoglobin 30.6 pg (26-34); Mean Corpuscular Volume 98.6 fl (80-100); Mean Platelet Volume 9.6 fl (7.4-10.4); Monocytes Absolute Auto 0.7 K/mm3 (0.1-0.6); Monocytes Percent Auto 12.2 % (2.6-8.5); Neutrophils Absolute Auto 3.8 K/mm3 (1.3-6.7); Neutrophils Percent Auto 62.8 % (45.5-73.1); Platelet Count Result 164 k/mm3 (150-375); Red Blood Count 3.56 M/mm3 (4.6-6.20); Red Cell Distribution Width 13.9 % (11.5-14.5); White Blood Count 6.1 K/mm3 (4.5-10.0)
[2022-12-19 05:19] LABS: Alanine Aminotransferase 20 U/L (6-50); Alkaline Phosphatase 57 U/L (38-126); Anion Gap 2 mmol/L (8-16); Aspartate Amino Transferase 20 U/L (17-59); Bilirubin,Total 0.4 mg/dL (0.2-1.3); Blood Urea Nitrogen 10 mg/dL (9-20); Calcium 8.3 mg/dL (8.4-10.2); Carbon Dioxide 33 mmol/L (22-30); Chloride 108 mmol/L (98-107); Estimated CRCL calculation 77 ml/min; Estimated Glomerular Filt Rate > 60; Glucose 89 mg/dL (65-110); Magnesium 1.9 mg/dL (1.6-2.3); Potassium 3.9 mmol/L (3.4-5.0); Sodium 143 mmol/L (137-145)
[2022-12-19] MEDS: UMECLIDINIUM/VILANTEROL 62.5-25 MCG ELLIPTA 1 PUFF INHALATION (09:01)
--- NOTE | 2022-12-19 09:14 | PCSTNOTE ---
Please refer to the Bedside Swallow Evaluation in the EMR. Please note, silent aspiration cannot be ruled out at bedside.
[2022-12-19] MEDS: carvediloL 25 MG TABLET PO ×2 (09:56→17:33)
[2022-12-19] MEDS: OLMESARTAN MEDOXOMIL 20 MG TABLET 40 MG PO (09:58)
[2022-12-19] MEDS: MULTIVITAMINS /C LUTEIN (CENTRUM SILVER) TABLET *BKC 1 TAB PO (09:59)
[2022-12-19] MEDS: ATORVASTATIN 10 MG TABLET PO (09:59)
[2022-12-19] MEDS: CHOLECALCIFEROL 400 UNITS TABLET (VIT D) PO (09:59)
[2022-12-19] MEDS: hydrALAZINE HCL 50 MG TABLET PO ×3 (10:00→17:33)
[2022-12-19] MEDS: ASPIRIN 81 MG ENTERIC TABLET PO (10:00)
[2022-12-19] MEDS: TAMSULOSIN HCL 0.4 MG CAPSULE PO (10:01)
[2022-12-19] MEDS: ENOXAPARIN 40 MG/0.4 ML SYRINGE SUB-Q (10:02)
[2022-12-19] MEDS: BRIMONIDINE TARTRATE 0.1% 5 ML OPHTH DROPS 1 DROP RIGHT EYE ×2 (10:02→21:31)
[2022-12-19] MEDS: ESCITALOPRAM OXALATE 10 MG TABLET PO (10:02)
[2022-12-19] MEDS: polyethylene glycoL 3350 17 GM POWD.PACK PO (10:03)
[2022-12-19] MEDS: levETIRAcetam 1000MG/NACL100ML 1,000 MG/100 ML BAG 400 MG IVPB ×2 (11:22→21:40)
[2022-12-19] MEDS: DOCUSATE SODIUM LIQ 100 MG/10 ML UDC PO ×2 (11:33→21:31)
--- NOTE | 2022-12-19 14:39 | PM.IMPN ---
Progress Note: A&P Assessment and Plan (1) Acute respiratory failure with hypoxia: Code(s): J96.01 - Acute respiratory failure with hypoxia Status: Acute Assessment and Plan: See below (2) Acute metabolic encephalopathy: Code(s): G93.41 - Metabolic encephalopathy Status: Acute (3) Pneumonia: Qualifiers: Laterality: left Lung location: lower lobe of lung Pneumonia type: due to unspecified organism Qualified Code(s): J18.9 - Pneumonia, unspecified organism Code(s): J18.9 - Pneumonia, unspecified organism Status: Resolved (4) Sepsis: Qualifiers: Sepsis acute organ dysfunction status: with acute organ dysfunction Sepsis type: sepsis due to unspecified organism Severe sepsis acute organ dysfunction type: encephalopathy Code(s): A41.9 - Sepsis, unspecified organism Status: Acute (5) Witnessed episode of apnea: Code(s): R06.81 - Apnea, not elsewhere classified Status: Acute (6) Short-term memory loss: Code(s): R41.3 - Other amnesia Status: Acute (7) Acute and chronic respiratory failure with hypoxia: Code(s): J96.21 - Acute and chronic respiratory failure with hypoxia Status: Acute Plan Presented with shortness of breath hypoxia fever with temperature 103? Acute encephalopathy left lower lobe pneumonia on ceftriaxone and doxycycline will switch to Augmentin. Continue on doxycycline to complete 7 days course this is also for possible left leg cellulitis Sepsis Acute on chronic hypoxic respiratory failure on oxygen supplementation. 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 wound care consult Acute agitation and anxiety needing restraints and pharmacologic agents; he is most hypoactive delirium now. stop zyprexa and ativan. His agitation is resolved and is much more lucid. DVT prophylaxis Lovenox Code status full code Subjective Date/time seen: 12/19/22 14:39 Interval history: Patient admitted with confusion and low oxygen saturation. Pt has history of chronic hypoxic respiratory failure, morbid obesity, short-term memory loss (mild dementia), intercerebral aneurysm, FLAT SORTING MACHINE CLERK shunt, state and COPD who presented to the ER via EMS from [facility] due to shortness of breath.?Pt has been having low grade fevers and confusion. Pt seen by neurosurgery here they feel the shunt is unlikely to be infected. Long discussion with sister who tells me pt has chronic lymphedema sees wound nurse from [facility]. Pt needs wound care consult and wrapping with pansement superabsorbent pad and kerlex. Unfortunately today pt is very agitated and restless wants to be discharged pt has a history of dementia explained to him that he is here for iv abx for pneumonia and cellulitic leg 12/17/2022: more awake, worked with therapy. looks sob, but denies one. ate this am. 12/18/2022: No overnight events. His still sleepy. Discussed with the family. he has leg swelling and redness 12/19/2022: no overnight events. patietn is more awake today. very cheerful. workign with therpay. no nausea, vomiting. no abdominal pain. Review of Systems Review of Systems: All systems reviewed & are unremarkable except as noted in HPI and below Exam Narrative: GENERAL: Pt is more calm and cooperative , sleepy RESPIRATORY diminshed breath sounds bialterally, no wheezes or rhonchi CARDIOVASCULAR: Regular rate and rhythm without murmurs, rubs, or gallops. Peripheral pulses 2+ and equal bilaterally. ABDOMINAL: Soft, nontender, nondistended, no hepatosplenomegaly. Normoactive BS. MUSCULOSKELETAL: no Epigastric and no hypochondrial tenderness SKIN: Warm, dry, normal color. No rashes. left leg with skin tear, reddish discolora
[2022-12-19] MEDS: AMOXICILLIN/CLAVULANATE K 875-125 MG TAB 1 TABLET PO (22:41)
[2022-12-20] VITALS (15 sets, daily range): BP systolic 131–182; BP diastolic 68–94; PULSE 68–111; RESP 16–22; TEMP 35.8–36.4; O2SAT 95–99
[2022-12-20 05:09] LABS: Basophils Percent Auto 0.6 % (0.2-1.2); Eosinophils Absolute Auto 0.4 K/mm3 (0-0.3); Eosinophils Percent Auto 5.7 % (0-4.4); Hematocrit 35.7 % (42.0-52.0); Hemoglobin 11.6 g/dL (14.0-18.0); Immature Granulocyte Absolute 0.04 K/mm3 (0.00-0.031); Immature Granulocyte Percent A 0.6 % (0-0.5); Lymphocytes Absolute Auto 1.62 K/mm3 (0.9-3.2); Lymphocytes Percent Auto 25.8 % (18.3-44.2); Mean Corpuscular HGB Conc 32.5 g/dl (32-36); Mean Corpuscular Hemoglobin 30.9 pg (26-34); Mean Corpuscular Volume 95.2 fl (80-100); Monocytes Absolute Auto 0.8 K/mm3 (0.1-0.6); Monocytes Percent Auto 12.1 % (2.6-8.5); Neutrophils Absolute Auto 3.5 K/mm3 (1.3-6.7); Neutrophils Percent Auto 55.2 % (45.5-73.1); Platelet Count Result 181 k/mm3 (150-375); Red Blood Count 3.75 M/mm3 (4.6-6.20); Red Cell Distribution Width 13.6 % (11.5-14.5); White Blood Count 6.3 K/mm3 (4.5-10.0)
[2022-12-20 05:26] LABS: Alanine Aminotransferase 22 U/L (6-50); Albumin Level 3.3 g/dL (3.5-5.1); Alkaline Phosphatase 60 U/L (38-126); Anion Gap 2 mmol/L (8-16); Aspartate Amino Transferase 23 U/L (17-59); Bilirubin,Total 0.4 mg/dL (0.2-1.3); Blood Urea Nitrogen 11 mg/dL (9-20); Calcium 8.6 mg/dL (8.4-10.2); Carbon Dioxide 33 mmol/L (22-30); Chloride 104 mmol/L (98-107); Estimated CRCL calculation 84 ml/min; Estimated Glomerular Filt Rate > 60; Glucose 89 mg/dL (65-110); Magnesium 1.8 mg/dL (1.6-2.3); Potassium 3.4 mmol/L (3.4-5.0); Sodium 139 mmol/L (137-145)
[2022-12-20] MEDS: DOXYCYCLINE HYCLATE 100 MG TABLET PO (06:37)
[2022-12-20] MEDS: ENOXAPARIN 40 MG/0.4 ML SYRINGE SUB-Q (08:29)
[2022-12-20] MEDS: hydrALAZINE HCL 50 MG TABLET PO ×3 (08:30→16:20)
[2022-12-20] MEDS: ASPIRIN 81 MG ENTERIC TABLET PO (08:30)
[2022-12-20] MEDS: BRIMONIDINE TARTRATE 0.1% 5 ML OPHTH DROPS 1 DROP RIGHT EYE (08:30)
[2022-12-20] MEDS: ATORVASTATIN 10 MG TABLET PO (08:32)
[2022-12-20] MEDS: carvediloL 25 MG TABLET PO ×2 (08:32→16:19)
[2022-12-20] MEDS: ESCITALOPRAM OXALATE 10 MG TABLET PO (08:32)
[2022-12-20] MEDS: MULTIVITAMINS /C LUTEIN (CENTRUM SILVER) TABLET *BKC 1 TAB PO (08:32)
[2022-12-20] MEDS: TAMSULOSIN HCL 0.4 MG CAPSULE PO (08:32)
[2022-12-20] MEDS: OLMESARTAN MEDOXOMIL 20 MG TABLET 40 MG PO (08:33)
[2022-12-20] MEDS: CHOLECALCIFEROL 400 UNITS TABLET (VIT D) PO (08:33)
[2022-12-20] MEDS: levETIRAcetam 1000MG/NACL100ML 1,000 MG/100 ML BAG 400 MG IVPB (09:41)
[2022-12-20] MEDS: AMOXICILLIN/CLAVULANATE K 875-125 MG TAB 1 TABLET PO (10:00)
[2022-12-20] MEDS: UMECLIDINIUM/VILANTEROL 62.5-25 MCG ELLIPTA 1 PUFF INHALATION (10:12)
[2022-12-20] MEDS: IPRATROPIUM BR 0.02% INH SOLN 0.5 MG/2.5 ML VIAL INHALATION ×2 (10:12→14:37)
[2022-12-20] MEDS: ALBUTEROL SULFATE NEB 2.5 MG/3 ML INH 5 MG INHALATION ×2 (10:12→14:37)
[2022-12-20] MEDS: ACETAMINOPHEN 325 MG TABLET 650 MG PO (11:50)
--- NOTE | 2022-12-20 15:01 | PM.DS ---
DS: Admitting Diagnosis Discharge Date 12/20/2022 Admitting Diagnosis shortness of breath DS: Discharge Diagnosis Discharge Diagnosis (1) Acute respiratory failure with hypoxia: Code(s): J96.01 - Acute respiratory failure with hypoxia Status: Acute Assessment and Plan: See below (2) Acute metabolic encephalopathy: Code(s): G93.41 - Metabolic encephalopathy Status: Acute (3) Pneumonia: Qualifiers: Laterality: left Lung location: lower lobe of lung Pneumonia type: due to unspecified organism Qualified Code(s): J18.9 - Pneumonia, unspecified organism Code(s): J18.9 - Pneumonia, unspecified organism Status: Resolved (4) Sepsis: Qualifiers: Sepsis type: sepsis due to unspecified organism Sepsis acute organ dysfunction status: with acute organ dysfunction Severe sepsis acute organ dysfunction type: encephalopathy Code(s): A41.9 - Sepsis, unspecified organism Status: Acute (5) Witnessed episode of apnea: Code(s): R06.81 - Apnea, not elsewhere classified Status: Acute (6) Short-term memory loss: Code(s): R41.3 - Other amnesia Status: Acute (7) Acute and chronic respiratory failure with hypoxia: Code(s): J96.21 - Acute and chronic respiratory failure with hypoxia Status: Acute DS: Summary Hospital Course Hospital Course: patient Presented with shortness of breath hypoxia fever with temperature 103? and confusion Acute encephalopathy with acute agitation needing restraints and pharmacological agents in the beginning. left lower lobe pneumonia on ceftriaxone and doxycycline During the hospital stay. Finish the doxycycline course during the hospital stay. Switched to Augmentin at discharge for 5 more days. Possible left leg cellulitis Sepsis due to above Acute on chronic hypoxic respiratory failure on oxygen supplementation. 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 wound care consult and followed the patient during hospital stay Acute agitation and anxiety needing restraints and pharmacologic agents; he is most hypoactive delirium now. stop zyprexa and ativan.? His agitation is resolved and is much more lucid. DVT prophylaxis Lovenox Code status full code Time Spent with Patient Time attestation: Total time spent providing and/or coordinating discharge services: 45 minutes Exam Narrative: GENERAL: Pt is more calm and cooperative , and oriented x3 RESPIRATORY diminshed breath sounds bialterally, no wheezes or rhonchi CARDIOVASCULAR: Regular rate and rhythm without murmurs, rubs, or gallops. Peripheral pulses 2+ and equal bilaterally. ABDOMINAL: Soft, nontender, nondistended, no hepatosplenomegaly. Normoactive BS. MUSCULOSKELETAL: no Epigastric and no hypochondrial tenderness SKIN: Warm, dry, normal color. No rashes. left leg with skin tear, reddish discoloration (hx of stasis deramtitis in the past) NEURO: calm, alert and oriented to palce and person, moving all extremiteis left leg: Lymphedema DS: Data Data Completed and Pending Labs on day of discharge: Labs from last 24 hours 12/20/22 12/20/22 04:30 04:30 WBC 6.3 RBC 3.75 L Hgb 11.6 L Hct 35.7 L MCV 95.2 MCH 30.9 MCHC 32.5 RDW 13.6 Plt Count 181 MPV 10.0 Immature Gran % (Auto) 0.6 H Neut % (Auto) 55.2 Lymph % (Auto) 25.8 [place] % (Auto) 12.1 H Eos % (Auto) 5.7 H Baso % (Auto) 0.6 Lymph # (Auto) 1.62 [place] # (Auto) 0.8 H Eos # (Auto) 0.4 H Baso # (Auto) 0.0 Abs Immat Gran (auto) 0.04 H Absolute Neuts (auto) 3.5 Absolute Nucleated RBC 0.0 Nucleated RBC % 0.0 Sodium 139 Potassium 3.4 Chloride 104 Carbon Dioxide 33
== END 2022-12-20 16:54 | DRG 871 ==
LOC: ANHED 12-14 02:53 → ANHIMU 12-14 03:45
PROVIDERS: Family Medicine; Internal Medicine; Admitting Provider Internal Medicine; Emergency Provider Emergency Medicine; Visit Provider Internal Medicine
DX: A41.9 Sepsis, unspecified organism (principal); G93.41 Metabolic encephalopathy; J18.9 Pneumonia, unspecified organism; J96.21 Acute and chronic respiratory failure with hypoxia; I62.03 Nontraumatic chronic subdural hemorrhage; R65.20 Severe sepsis without septic shock; I67.1 Cerebral aneurysm, nonruptured; I10 Essential (primary) hypertension; I87.2 Venous insufficiency (chronic) (peripheral); I89.0 Lymphedema, not elsewhere classified; J44.9 Chronic obstructive pulmonary disease, unspecified; E78.5 Hyperlipidemia, unspecified; E66.01 Morbid (severe) obesity due to excess calories; E55.9 Vitamin D deficiency, unspecified; R41.3 Other amnesia; H40.9 Unspecified glaucoma; G40.909 Epilepsy, unspecified, not intractable, without status epilepticus; F03.A0 Unspecified dementia, mild, without behavioral disturbance, psychotic disturbance, mood disturbance, and anxiety; Z20.822 Contact with and (suspected) exposure to COVID-19; Z99.81 Dependence on supplemental oxygen; Z98.2 Presence of cerebrospinal fluid drainage device; Z86.73 Personal history of transient ischemic attack (TIA), and cerebral infarction without residual deficits; Z79.82 Long term (current) use of aspirin; Z87.891 Personal history of nicotine dependence
CPT/HCPCS: 36415; 36600; 70450; 71045; 71275; 80048; 80053; 80177; 81003; 82805; 82948; 83605; 83735; 83880; 84145; 84484; 85025; 85610; 85730; 87040; 87637; 92610; 93005; 94640; 96365; 96367; 96375; 97110; 97116; 97161; 97165; 97530; 99285; A9270; J0131; J0696; J1630; J1650; J1953; J2060; J2405; J7030; Q9967